=== PATIENT | male | born 1940 | race Caucasian/White ===

== ENCOUNTER 2016-08-20 10:35 | Inpatient (IN) | payer MEDICARE, OTHER ==
[2016-08-20 10:42] VITALS: BMI 26.6
--- NOTE | 2016-08-20 10:58 | ED PDOC ---
Arrival/HPI - General Chief Complaint: Chest Pain Time Seen by Provider: 08/20/16 10:40 Historian: Patient, Family, EMS - History of Present Illness Narrative History of Present Illness (Text): 08/20/16 11:00 75 year old male whose past medical history includes cardiac bypass surgery, hypertension, diabetes, hyperlipidemia, and cardiac arrythmia presents to the emergency department with palpitations and chest pain that has since resolved. Patient has a history of SVT, resolved as per EMS. Aspirin was given by EMS. Currently patient is pain free. Denies fever or other complaints. PMD: Dr. Calzada Refuge Worker: Dr. Mendoza Time/Duration: 24 hours Symptom Onset: Sudden Symptom Course: Improving Associated Symptoms (Text): None Past Medical History - Provider Review Nursing Documentation Reviewed: Yes - Infectious Disease Hx of Infectious Diseases: None - Tetanus Immunization Tetanus Immunization: Unknown - Cardiac Hx Cardiac Disorders: Yes Hx Angina: No Hx Cardiac Arrhythmia: Yes Hx Circulatory Problems: No Hx Congestive Heart Failure: No Hx Heart Murmur: No Hx Heart Transplant: No Hx Hypertension: Yes Hx Internal Defibrillator: No Hx Mitral Valve Prolapse: No Hx Pacemaker: No Hx Peripheral Edema: No Hx Peripheral Vascular Disease: No Other/Comment: CABG - Pulmonary Hx Respiratory Disorders: No Hx Asthma: No Hx Bronchitis: No Hx Chronic Obstructive Pulmonary Disease (COPD): No Hx Emphysema: No Hx Pneumonia: No Hx Respiratory Aspiration: No Hx Respiratory Tract Infection: No Hx Sleep Apnea: No Hx Tuberculosis: No - Neurological Hx Neurological Disorder: No Hx Alzheimer's Disease: No HX Cerebrovascular Accident: No Hx Dementia: No Hx Dizziness: Yes Hx Meningitis: No Hx Migraine: No Hx Parkinson's Disease: No Hx Seizures: No Hx Transient Ischemic Attacks (TIA): No - HEENT Hx HEENT Disorder: Yes (EAR INFECTION WITH SURGERY TO L EAR) Hx Blind: No Hx Cataracts: No Hx Deafness: No Hx Difficulty Chewing: Yes Hx Epistaxis: No Hx Glaucoma: No Hx Macular Degeneration: No Other/Comment: bilat cataracts - Renal Hx Renal Disorder: No Hx Dialysis: No Hx Kidney Stones: Yes Hx Neurogenic Bladder: No Hx Pyelonephritis: No Hx Renal Cancer: No Hx Renal Failure: No - Endocrine/Metabolic Hx Endocrine Disorders: No Hx Adrenal Cancer: No Hx Diabetes Insipidus: No Hx Diabetes Mellitus Type 1: No Hx Diabetes Mellitus Type 2: Yes Hx Hyperthyroidism: No Hx Hypothyroidism: No Hx Systemic Lupus Erythematosus: No - Hematological/Oncological Hx Blood Disorders: No Hx AIDS: No Hx Anemia: No Hx Cancer: No Hx Chemotherapy: No Hx Cirrhosis: No Hx Hemophilia: No Hx Hepatitis A: No Hx Hepatitis B: No Hx Hepatitis C: No Hx Metastasis: No Hx Shingles: No Hx Sickle Cell Disease: No Hx Unexplained Bleeding: No - Integumentary Hx Dermatological Disorder: No Hx Basal Cell Carcinoma: No Hx Eczema: No Hx Melanoma: No Hx Psoriasis: No Hx Squamous Cell Carcinoma: No - Musculoskeletal/Rheumatological Hx Musculoskeletal Disorders: No Hx Arthritis: No Hx Back Pain: No Hx Degenerative Joint Disease: No Hx Falls: Yes Hx Fractures: No Hx Gout: No Hx Herniated Disk: No Hx Myasthenia Gravis: No Hx Osteoarthritis: No Hx Osteomyelitis: No Hx Osteoporosis: No Hx Rhabdomyolysis: No Hx Spinal Stenosis: No Hx Unsteady Gait: Yes - Gastrointestinal Hx Gastrointestinal Disorders: No Hx Colostomy: No Hx Crohn's Disease: No Hx Diverticulitis: No Hx Gall Bladder Disease: No Hx Gastroesophageal Reflux: No Hx Gastrointestinal Ulcer: No Hx Ileostomy: No Hx Liver Failure: No Hx Pancreatitis: No HX Swallowing Problems: No - Genitourinary/Gynecological Hx Genitourinary Disorders: No Hx Hematuria: No Hx Incontinence: No Hx Sexually Transmitted Diseases: No Hx Urinary Tract Infection: No - Psychiatric Hx Psychophysiologic Disorder: No Hx Anxiety: No Hx Bipolar Disorder: No Hx Depression: No Hx Emotional Abuse: No Hx Hallucinations: No Hx Panic Disorder: No Hx Post Traumatic Stress Disorder: No Hx Psychosis: No Hx Physical Abuse: No Hx Schizophrenia: No Hx Sexual Abuse: No Hx Substance Use: No - Surgical History Hx Amputation: No Hx Appendectomy: No Hx Cardiac Catheterization: No Hx Cholecystectomy: No Hx Coronary Stent: No Hx Gastric Bypass Surgery: No Hx Hysterectomy: No Hx Joint Replacement: No Hx Kidney Transplant: No Hx Liver Transplant: No Hx Mastectomy: No Hx Musculoskeletal Surgery: No Hx Open Heart Surgery: Yes (TRIPLE BYPASS) Hx Orthopedic Surgery: No Hx Splenectomy: No Hx Valve Replacement: No Other/Comment: CATARACT, EAR SX LEFT EAR - Anesthesia Hx Anesthesia: Yes Hx Anesthesia Reactions: No - Suicidal Assessment Feels Threatened In Home Enviroment: No Family/Social History - Physician Review Nursing Documentation Reviewed: Yes Family/Social History: Unknown Family HX Smoking Status: Never Smoked Hx Alcohol Use: No Hx Substance Use: No Hx Substance Use Treatment: No Allergies/Home Meds Allergies/Adverse Reactions: Allergies No Known Allergies Allergy (Verified 08/20/16 10:43) Home Medications: Home Meds Medication Instructions Recorded Confirmed Atorvastatin Calcium [Lipitor] 10 mg PO DAILY 05/09/13 08/25/15 Aspirin [Aspirin] 1 tab PO DAILY 07/19/14 08/25/15 Levothyroxine Sodium 0.125 mcg PO DAILY 08/14/15 08/25/15 Metformin HCl 500 mg PO BID 08/14/15 08/25/15 Metoprolol Tartrate 25 mg PO BID 08/14/15 08/25/15 Review of Systems - Physician Review All systems were reviewed & negative as marked: Yes - Review of Systems Constitutional: absent: Fevers Respiratory: absent: SOB Cardiovascular: Chest Pain (resolved), Palpitations Neurological: absent: Dizziness Physical Exam Vital Signs Temp Pulse Pulse Resp BP Pulse Ox 08/20/16 11:10 102 H 08/20/16 10:35 98.0 F 106 H 16 103/61 98 Pulse: Tachycardic - Systems Exam Head: Present: Atraumatic, Normocephalic Pupils: Present: PERRL Extroacular Muscles: Present: EOMI Conjunctiva: Present: Normal Mouth: Present: Moist Mucous Membranes Neck: Present: Normal Range of Motion Respiratory/Chest: Present: Clear to Auscultation, Good Air Exchange. No: Respiratory Distress, Accessory Muscle Use Cardiovascular: Present: Regular Rate and Rhythm, Normal S1, S2. No: Murmurs Abdomen: Present: Normal Bowel Sounds. No: Tenderness, Distention, Peritoneal Signs Back: Present: Normal Inspection Upper Extremity: Present: Normal Inspection. No: Cyanosis, Edema Lower Extremity: Present: Normal Inspection. No: Edema Neurological: Present: GCS=15, CN II-XII Intact, Speech Normal Skin: Present: Warm, Dry, Normal Color. No: Rashes Psychiatric: Present: Alert, Oriented x 3, Normal Insight, Normal Concentration Medical Decision Making ED Course and Treatment: Impression: 75 year old male whose past medical history includes cardiac bypass surgery, hypertension, diabetes, hyperlipidemia, and cardiac arrythmia presents to the emergency department with palpitations and chest pain that has since resolved. Differential Diagnosis include but are not limited to: Plan: -- EKG, Chest X-ray -- Labs -- Reassess and disposition Prior Visits: Notes and results from previous visits were reviewed. Patient last seen in ED on 08/14/15 for palpitations and dizziness and admitted for Uncontrolled diabetes mellitus, Supraventricular tachycardia, Pre-syncope Progress Notes: 08/20/16 12:40 Dr. Calzada accepts to observation - Lab Interpretations Lab Results: 08/20/16 11:15 08/20/16 11:15 Lab Results 08/20/16 11:15: Sodium 136, Potassium 4.0, Chloride 100, Carbon Dioxide 25, Anion Gap 15, BUN 17, Creatinine 1.2, Est GFR ( Amer) > 60, Est GFR (Non- Af Amer) 59, Random Glucose 217 H, Calcium 9.5, Magnesium 1.4 L, Total Bilirubin 0.7, AST 24, ALT 25, Alkaline Phosphatase 88, Lactate Dehydrogenase 340, Total Creatine Kinase 57, Troponin I 0.03 D, Total Protein 7.2, Albumin 3.8, Globulin 3.4, Albumin/Globulin Ratio 1.1 08/20/16 11:15: PT 11.9 H, INR 1.10 H, APTT 31.3 H 08/20/16 11:15: WBC 9.1, RBC 5.19, Hgb 13.1 L, Hct 38.6 L, MCV 74.4 L, MCH 25.2 , MCHC 33.9, RDW 15.3 H, Plt Count 162, MPV 9.5, Gran % 61.4, Lymph % (Auto) 11.1 L, [place] % (Auto) 5.4, Eos % (Auto) 21.9 H, Baso % (Auto) 0.2, Gran # 5.62, Lymph # 1.0 L, [place] # 0.5, Eos # 2.0 H, Baso # 0.02 - RAD Interpretation Radiology Orders: 08/20/16 11:02 CHEST PORTABLE [RAD] Stat - EKG Interpretation EKG Interpretation (Text): EKG shows sinus tachycardia at [address]/T wave changes, no interval changes. Interpreted by me. Interpreted by ED Physician: Yes Type: 12 lead EKG - Scribe Statement The provider has reviewed the documentation as recorded by the [facility] Provider Scribe Attestation: All medical record entries made by the Scribe were at my direction and personally dictated by me. I have reviewed the chart and agree that the record accurately reflects my personal performance of the history, physical exam, medical decision making, and the department course for this patient. I have also personally directed, reviewed, and agree with the discharge instructions and disposition. Disposition/Present on Arrival - Present on Arrival Any Indicators Present on Arrival: No History of DVT/PE: No History of Uncontrolled Diabetes: Yes Urinary Catheter: No History of Decub. Ulcer: No History Surgical Site Infection Following: None - Disposition Have Diagnosis and Disposition been Completed?: Yes Diagnosis: Chest pain, Supraventricular tachycardia Disposition: HOSPITALIZED Disposition Time: 13:38 Patient Problems: Current Active Problems Problem Status Onset Chest pain Acute Supraventricular tachycardia Acute Condition: FAIR
[2016-08-20 11:25] LABS: ADD MANUAL DIFF? NO
[2016-08-20 11:31] LABS: BASO # 0.02 K/mm3 (0.0-2.0); BASO % 0.2 % (0.0-3.0); EOS % 21.9 % (1.5-5.0); GRAN # 5.62 (1.4-6.5); GRAN % 61.4 % (50.0-68.0); HEMATOCRIT 38.6 % (42.0-52.0); LYMPH % 11.1 % (22.0-35.0); MEAN CELL VOLUME 74.4 fL (80.0-105.0); MEAN CORPUSCULAR HEMOGLOBIN 25.2 pg (25.0-35.0); MEAN CORPUSCULAR HGB CONC 33.9 g/dl (31.0-37.0); MEAN PLATELET VOLUME 9.5 fl (7.0-11.0); MONO # 0.5 (0.1-0.6); MONO % 5.4 % (1.0-6.0); PLATELET COUNT 162 10^3/uL (120.0-450.0); RED CELL DISTRIBUTION WIDTH 15.3 % (11.5-14.5); WHITE BLOOD COUNT 9.1 10^3/ul (4.5-11.0)
[2016-08-20 11:41] LABS: ALB/GLOB RATIO 1.1 (1.1-1.8); ALKALINE PHOSPHATASE 88 U/L (38-133); ALT/SGPT 25 U/L (7-56); AST/SGOT 24 U/L (15-59); BILIRUBIN,TOTAL 0.7 mg/dL (0.2-1.3); BLOOD UREA NITROGEN 17 mg/dL (7-21); CALCIUM 9.5 mg/dL (8.4-10.5); CARBON DIOXIDE 25 mmol/L (21-33); CHLORIDE 100 mmol/L (98-107); GFR AFRICAN-AMERICAN > 60; GLUCOSE,RANDOM 217 mg/dL (70-110); MAGNESIUM 1.4 mg/dL (1.7-2.2); SODIUM 136 mmol/L (132-148); TOTAL PROTEIN 7.2 g/dL (5.8-8.3)
[2016-08-20 11:44] LABS: INR 1.1 (0.93-1.08); PARTIAL THROMBOPLASTIN TIME 31.3 Seconds (23.7-30.8)
[2016-08-20 11:52] LABS: TROPONIN I 0.03 ng/mL
--- NOTE | 2016-08-20 12:45 | RAD ---
HISTORY: cp COMPARISON: 08/14/2015 FINDINGS: LUNGS: No active pulmonary disease. PLEURA: No significant pleural effusion identified, no pneumothorax apparent. CARDIOVASCULAR: Normal. OSSEOUS STRUCTURES: Sternal wires VISUALIZED UPPER ABDOMEN: Normal. OTHER FINDINGS: None. IMPRESSION: No active disease.
--- NOTE | 2016-08-20 14:59 | CARD ---
APPROVED REPORT EKG Measurement Heart [id number] <Conclusion> Sinus tachycardia. Left [place]. Otherwise normal ECG
[2016-08-20] MEDS ORDERED: Magnesium Sulfate 2 GM in Sodium Chloride 0.9% 100 ML IVPB ONE (17:20)
[2016-08-20] MEDS ORDERED: Pneumococcal 23-Valent Vaccine IM ONE (19:54)
[2016-08-20] MEDS: Insulin Reg-LOW-Coverage SC SCH (21:59)
[2016-08-21 06:01] LABS: URINE BILIRUBIN NEGATIVE (NEGATIVE); URINE BLOOD NEGATIVE (NEGATIVE); URINE GLUCOSE (UA) NEGATIVE (NEGATIVE); URINE KETONE NEGATIVE (NEGATIVE); URINE LEUKOCYTE ESTERASE NEGATIVE Leu/uL (NEGATIVE); URINE PROTEIN NEGATIVE mg/dL (<30 mg/dL); URINE UROBILINOGEN 0.2 E.U./dL (<1 E.U./dL)
[2016-08-21 06:25] LABS: URINE APPEARANCE CLEAR (CLEAR); URINE COLOR YELLOW (YELLOW)
[2016-08-21 07:50] LABS: HEMATOCRIT 37.9 % (42.0-52.0); MEAN CELL VOLUME 74.2 fL (80.0-105.0); MEAN CORPUSCULAR HEMOGLOBIN 24.5 pg (25.0-35.0); MEAN PLATELET VOLUME 9.6 fl (7.0-11.0); RED CELL DISTRIBUTION WIDTH 15.1 % (11.5-14.5); WHITE BLOOD COUNT 9.6 10^3/ul (4.5-11.0)
[2016-08-21 08:03] LABS: BLOOD UREA NITROGEN 14 mg/dL (7-21); CALCIUM 9.3 mg/dL (8.4-10.5); CARBON DIOXIDE 28 mmol/L (21-33); CHLORIDE 101 mmol/L (98-107); CHOLESTEROL 186 mg/dL (130-200); GFR AFRICAN-AMERICAN > 60; GLUCOSE,RANDOM 102 mg/dL (70-110); POTASSIUM 3.6 mmol/L (3.6-5.0); SODIUM 137 mmol/L (132-148)
--- NOTE | 2016-08-21 08:29 | HP ---
CHIEF COMPLAINT: Chest pain, shortness of breath. HISTORY OF PRESENT ILLNESS: The patient is a 76-year-old male, my private patient, with past medical history of cardiac bypass surgery, hypertension, diabetes mellitus, hypercholesterolemia, cardiac ar rhythmias, came to the Emergency Department with palpitation, chest pain and shortness of breath. Ac tually, the patient said he was sitting and all of sudden, he felt that heart is coming out and with that, he is feeling shortness of breath. The patient has history of SVT, resolved as per EMS. Aspir in was given by EMS. When I saw the patient in the Emergency Room, at that time he does not have sharath st pain. Shortness of breath got better. No nausea, vomiting, or diarrhea. No fever, no chills. N o headache, no dizziness. PAST MEDICAL HISTORY: History of cardiac bypass, hypertension, diabetes mellitus, hypercholesterolem ia, history of CABG, dizziness, history of ear infection with surgery to the left ear. Denture prob rodrigo, history of bilateral cataracts, history of nephrolithiasis, ataxia, remote triple bypass. FAMILY HISTORY: Father and mother noncontributory. HABITS: Never smoked, no drugs, no ethanol. ALLERGIES: The patient is not allergic with any medications. HOME MEDICATIONS: Lipitor, aspirin, levothyroxine, metformin, metoprolol. REVIEW OF SYSTEMS: The patient seen and examined on the bedside in the telemetry, feels comfortable. No shortness of breath. No nausea, vomiting, or diarrhea. No hematuria or hematochezia. No swell ing of the leg. No chest pain, no palpitation, no fever, no chills. Does not look toxic. Chest davonte n is resolved. Shortness of breath resolved. Palpitations resolved. PHYSICAL EXAMINATION: VITAL SIGNS: Temperature 98, pulse 102, respiratory rate 15. Blood pressure 103/61, pulse oximetry 98. HEENT: Head normocephalic, atraumatic. Eyes: PERRLA. Extraocular muscles intact. Conjunctivae pi nk. Eyelids unremarkable. Nose patent. Mucous membranes moist. NECK: Supple. No carotid bruit, JVD or thyromegaly. CHEST: Bilaterally symmetrical. HEART: S1, S2 positive. LUNGS: Clear to auscultation. ABDOMEN: Soft. Bowel sounds positive. No organomegaly. EXTREMITIES: No edema, no cyanosis. NEUROLOGIC: The patient is awake, alert, moving all 4 extremities. No focal deficit. LABORATORY DATA: White blood cell is 9.1, hemoglobin 13.1, hematocrit 38.6, and platelets 162. [place] um 136, potassium 4.0, BUN 70, creatinine 1.2, and glucose 217. ASSESSMENT AND PLAN: The patient is a 76-year-old male with anemia, hyperglycemia, came with chest p ain, shortness of breath, palpitation, had supraventricular tachycardia, resolved. History of hypoth yroidism, hypercholesterolemia, gastric bypass, hypertension, diabetes mellitus. We admitted the pat ient. Cardiac consult called. Cardiac enzymes x 3 ordered. Repeat labs. We will follow up. Latisha Calzada MD cc: [id number] TT: 08/21/2016 08:28:43 tn
[2016-08-21 08:56] LABS: TROPONIN I 0.23 ng/mL
[2016-08-21] MEDS: Insulin Reg-LOW-Coverage SC SCH ×4 (09:00→22:59)
[2016-08-21] MEDS: Aspirin 325 mg EC Tablets PO SCH (09:06)
[2016-08-21] MEDS: Levothyroxine 125 MCG TAB PO SCH (09:09)
[2016-08-21] MEDS ORDERED: METFORMIN HCL 500 MG PO SCH (10:00)
[2016-08-21] MEDS ORDERED: LEVOTHYROXINE SODIUM 0.125 MCG PO SCH (10:00)
[2016-08-21] MEDS ORDERED: METOPROLOL TARTRATE 25 MG PO SCH (10:00)
[2016-08-21] MEDS: Enoxaparin 60 mg Syringe SC SCH ×2 (12:22→23:30)
--- NOTE | 2016-08-21 16:06 | CARD ---
APPROVED REPORT EXAM: Two-dimensional and M-mode echocardiogram with Doppler and color Doppler. 2D DIMENSIONS Left Atrium (2D)3.6 (1.6-4.0cm)IVSd1.4 (0.7-1.1cm) LVDd3.5 (3.9-5.9cm)PWd1.3 (0.7-1.1cm) LVDs2.3 (2.5-4.0cm)FS (%) 36.2 % LVEF (%)50.0 (>50%) M-Mode DIMENSIONS Left Atrium (MM)3.90 (2.5-4.0cm)Aortic Root3.10 (2.2-3.7cm) Aortic Cusp Exc.1.70 (1.5-2.0cm) Aortic Valve AoV Peak Zlieraba317.0cm/sAoV VTI22.1cmAO Peak GR.5mmHg LVOT Peak Hiuwkjul656.0cm/sLVOT VTI24.60cmAO Mean GR.3mmHg Mitral Valve MV E Ygrblxvx08.7cm/sMV A Slxpnsak806.0cm/sE/A ratio1.0 TDI Lateral E' Peak V5.85cm/sMedial E' Peak V5.22cm/sE/Lateral E'16.5 E/Medial E'18.5 Tricuspid Valve TR Peak Weiqcgbh334pr/sTR Peak Gr.15mmHg LEFT VENTRICLE The left ventricle is normal size. There is mild to moderate concentric left ventricular hypertrophy. Left ventricle ejection fraction is borderline. Septal hypokinesis Transmitral Doppler flow pattern is Grade I-abnormal relaxation pattern. RIGHT VENTRICLE The right ventricle is normal size. There is normal right ventricular wall thickness. The right ventricular systolic function is normal. ATRIA The left atrium size is normal. The right atrium size is normal. AORTIC VALVE The aortic valve is mildly thickened. MITRAL VALVE The mitral valve is mildly thickened. TRICUSPID VALVE There is no pulmonary hypertension. GREAT VESSELS The aortic root is normal in size. The IVC is normal in size and collapses >50% with inspiration. PERICARDIAL EFFUSION There is no pericardial effusion. <Conclusion> The left ventricle is normal size. There is mild to moderate concentric left ventricular hypertrophy. Left ventricle ejection fraction is borderline. Septal hypokinesis Transmitral Doppler flow pattern is Grade I-abnormal relaxation pattern.
--- NOTE | 2016-08-21 16:50 | PN ---
DATE: 08/21/2016 SUBJECTIVE: The patient was seen and examined on the bedside. Chest pain is little bit better. No nausea, vomiting, or diarrhea. No fever, no chills. No headache, no dizziness. No swelling of the leg. No fever, no chills. Does not look like toxic, REVIEW OF SYSTEMS: 12 systems within normal limits except above as dictated. PHYSICAL EXAMINATION: VITAL SIGNS: Temperature 98, pulse 60, blood pressure 147/79, respiratory rate 18. HEAD: Normocephalic, atraumatic. EYES: PERRLA. Extraocular muscles are intact. Conjunctivae clear. Nose patent. Mucous membranes moist. NECK: Supple. No carotid bruit, JVD or thyromegaly. CHEST: Bilaterally symmetrical. HEART: S1, S2 positive. LUNGS: Clear to auscultation. ABDOMEN: Soft. Bowel sounds present. No organomegaly. EXTREMITIES: No edema, no cyanosis. NEUROLOGIC: The patient is awake, alert and moving all 4 extremities. No focal deficits. MEDICATIONS: Ecotrin, insulin, Lipitor, Lopressor, Lovenox, Pepcid, Plavix, Synthroid. LABORATORY DATA: White blood cells 9.6, hemoglobin 12.5, hematocrit 37.9, platelets 176. Sodium 137, potassium 3.6, BUN 14, creatinine 1.0. Troponin is 0.23, initial was 0.03 trending up. ASSESSMENT AND PLAN: The patient is a 76-year-old male with multiple medical problems. Came with chest pain and troponin is trending up. Cardiology consult called with Dr. Rikki Mendoza. He is private patient of Dr. Rikki Mendoza. History of cardiac bypass, hypertension, diabetes mellitus, hypercholesterolemia, history of coronary artery bypass graft, dizziness, history of infection with surgery of the left ear, history of bilateral cataracts, nephrolithiasis, ataxia , history of a triple bypass. He came with chest pain. Cardiology consult called. Cardiac enzymes , ordered, second set is trending up waiting for the . History of anemia, hyperglycemia. Came with palpitation also, supraventricular tachycardia, resolved. History of hyperthyroidism, hypercholesterolemia. Gastrointestinal and deep vein thrombosis prophylaxis. Repeat lab. Waiting for a human resources administrator's input. We will follow up. Latisha Calzada MD cc: [id number] TT: 08/21/2016 16:49:17 Confirmation # [id number] Dictation # [id number] jn MTDD
--- NOTE | 2016-08-21 19:24 | CON ---
DATE: 08/21/2016 REASON FOR CONSULTATION: Chest pain. HISTORY OF PRESENT ILLNESS: The patient is a 76-year-old [place] male who has a history of hyperte nsion, diabetes mellitus, and a history of coronary artery disease status post coronary bypass surger y in 2004 in [place], [place]. The patient has a history of and the patient presents ora use of chest pain that was retrosternal, nonradiating. The patient is unaware of any coronary interv ention following his cardiac bypass surgery in 2004. The patient underwent a Myoview stress test in August of last year that was negative for ischemia. SOCIAL HISTORY: The patient is a nonsmoker, nondrinker. MEDICATIONS: Aspirin 325 mg once a day, Lipitor 40 mg once a day, Lopressor 25 mg twice a day, Loven ox 60 mg subcutaneous twice a day, Plavix 75 mg once a day, Synthroid 125 mcg once a day. PAST MEDICAL HISTORY: Hypertension, diabetes mellitus, hypothyroidism, coronary artery disease statu s post coronary bypass surgery. PHYSICAL EXAMINATION: GENERAL: The patient is an elderly male who does not appear to be in any distress. VITAL SIGNS: Blood pressure 147/79, heart rate 60, temperature 98, respiration 18. HEENT: Normocephalic. NECK: No JVD. CHEST: Clear. HEART: S1, S2 regular. ABDOMEN: Soft. EXTREMITIES: No edema. LABORATORY DATA: Hemoglobin and hematocrit 12.5 and 39.7, white count and platelet count are within normal limits. Today's SMA-7 is entirely within normal limits. Troponin was 0.03 and 0.23. TSH is elevated at 8.25. INR is 1.1 and PTT 31.3. EKG revealed sinus tachycardia at the rate of 106 with a nterior T-wave inversion. Chest x-ray revealed normal cardiac silhouette and prominent bronchovascular markings. ASSESSMENT: 1. Chest pain, rule out non-ST elevation myocardial infarction. 2. Rule out pulmonary infarction. 3. Hypertension and diabetes mellitus. 4. Hypothyroidism. RECOMMENDATIONS: Continue current therapeutic subcutaneous Lovenox, aspirin, Lopressor and Lipitor, which I did start today. Hold Glucophage for now. Obtain serum D-dimer. I will review the echocard iographic study that was performed today. Rocky Bowman MD cc: [id number] TT: 08/21/2016 19:23:31 Confirmation # [id number] Dictation # [id number] dn
[2016-08-21] MEDS ORDERED: Albuterol-Ipratrop 3 mg / 0.5 (3 ml) UD IH PRN (19:29)
--- NOTE | 2016-08-22 00:06 | CON ---
DATE: 08/21/2016 REFERRING PHYSICIAN: Dr. Calzada. REASON FOR CONSULTATION: Chronic lung disease, sleep apnea syndrome, comes in with near syncope, had hypotension at home, sent to Emergency Room, seen by cardiology and Dr. Calzada. Presently, feels be tter. There is no chest pain, no nausea, no vomiting, and no diarrhea. Has some cough. PAST MEDICAL HISTORY: Coronary artery disease, history of coronary bypass surgery, hypertension, sarah betes, nephrolithiasis, chronic lung disease, sleep apnea syndrome. FAMILY HISTORY: No significant cardiopulmonary disease reported. SOCIAL HISTORY: Nonsmoker, nondrinker. ALLERGIES: None known. MEDICATIONS: He is on Ecotrin 325 mg daily, insulin coverage, Lipitor 40 mg daily, metoprolol tartra te 25 mg twice a day, Lovenox 60 mg q. 12 hours, Pepcid 40 mg daily, Plavix 75 mg daily, Synthroid 12 5 mcg before breakfast. REVIEW OF SYSTEMS: Before admission, he had a near syncopal episode. At present, there is no headac he, no rhinitis, no cough, no sputum production, no nausea, vomiting, diarrhea. No leg pain or leg s welling. PHYSICAL EXAMINATION: GENERAL: Lying in the bed. No acute distress. VITAL SIGNS: Temp is 98, heart rate is 69, respiratory rate is , blood pressure 135/77, pulse o x 99% on 2 liters nasal cannula. HEENT: Moist mucous membranes. Crowded airway. Mallampati score is 4. NECK: Supple. No JVD. LUNGS: Has a few scattered rhonchi. HEART: Irregularly irregular. ABDOMEN: Soft, nontender. No organomegaly. EXTREMITIES: There is no edema. NEUROLOGIC: Awake, alert, follows simple commands. LABORATORY DATA: Shows hemoglobin 12.5, hematocrit 37.9, WBC 9.6, platelet is 176. INR of 1.10, D-d melina 0.52. Sodium 137, potassium 3.6, chloride 101, bicarbonate 28, BUN 14, creatinine 1.0, glucose 178, calcium is 9.3, magnesium 2.0. Troponin 0.23. TSH 8.25. Urinalysis is unremarkable. Had echo cardiogram done today, shows left ventricle is normal size, mild to moderate concentric left ventricu lar hypertrophy, left ventricular ejection fraction is borderline, , has mild cardiac diastolic dysfunction. Had EKG done, which shows sinus tachycardia, left axis deviation. IMPRESSION AND PLAN: Near syncopal episode with shortness of breath, has coronary artery disease, hi story of coronary bypass surgery, hypertension, diabetes, hyperlipidemia, chronic lung disease, sleep apnea syndrome, has OH. The patient is on anticoagulation. We will add bronchodilators, GERD preca utions, CPAP 7 cm with 35% oxygen while sleeping. Careful with sedation. [facility] consultation. Thank you and will follow with you. Nevin Arellano MD cc: [id number] TT: 08/22/2016 00:05:42 Confirmation # [id number] Dictation # [id number] mn
[2016-08-22] MEDS: Insulin Reg-LOW-Coverage SC SCH ×4 (07:37→21:38)
[2016-08-22] MEDS: Enoxaparin 60 mg Syringe SC SCH ×2 (07:43→21:11)
[2016-08-22] MEDS: Levothyroxine 125 MCG TAB PO SCH (07:44)
[2016-08-22 07:47] LABS: HEMATOCRIT 39.1 % (42.0-52.0); MEAN CELL VOLUME 74.5 fL (80.0-105.0); MEAN CORPUSCULAR HEMOGLOBIN 24.4 pg (25.0-35.0); MEAN CORPUSCULAR HGB CONC 32.7 g/dl (31.0-37.0); MEAN PLATELET VOLUME 9.3 fl (7.0-11.0); RED CELL DISTRIBUTION WIDTH 14.9 % (11.5-14.5); WHITE BLOOD COUNT 8.5 10^3/ul (4.5-11.0)
[2016-08-22 08:04] LABS: ALKALINE PHOSPHATASE 71 U/L (38-133); ALT/SGPT 28 U/L (7-56); AST/SGOT 23 U/L (15-59); BILIRUBIN,TOTAL 0.6 mg/dL (0.2-1.3); BLOOD UREA NITROGEN 15 mg/dL (7-21); CALCIUM 9.5 mg/dL (8.4-10.5); CARBON DIOXIDE 30 mmol/L (21-33); CHLORIDE 98 mmol/L (98-107); GFR AFRICAN-AMERICAN > 60; GLUCOSE,RANDOM 111 mg/dL (70-110); POTASSIUM 3.8 mmol/L (3.6-5.0); SODIUM 138 mmol/L (132-148); TOTAL PROTEIN 7.4 g/dL (5.8-8.3)
[2016-08-22] MEDS: Aspirin 325 mg EC Tablets PO SCH (09:17)
--- NOTE | 2016-08-22 14:20 | PN ---
DATE: 08/22/2016 The patient denies any chest pain. PHYSICAL EXAMINATION: VITAL SIGNS: Blood pressure 158/78, heart rate 68, temperature 97.4, respiration 18. HEENT: Normocephalic. NECK: No JVD. CHEST: Clear. HEART: S1, S2 regular. EXTREMITIES: No edema. LABORATORIES: Today's SMA-7 is within normal limits except for glucose of 111. Today's troponin 0.1 . Echocardiograph study revealed normal left ventricular size, mild to moderate concentric LVH, sept al hypokinesis, borderline ejection fraction and grade I abnormal relaxation pattern. ASSESSMENT: 1. Chest pain, consider non-ST elevation myocardial infarction. 2. Hypertension and diabetes mellitus. RECOMMENDATIONS: Continue current aspirin, Plavix, therapeutic subcutaneous Lovenox, Lopressor and S ynthroid. For possible cardiac catheterization tomorrow. Rocky Bowman MD cc: [id number] TT: 08/22/2016 14:19:45 Confirmation # [id number] Dictation # [id number]
--- NOTE | 2016-08-22 15:38 | PN ---
DATE: 08/22/2016 The patient is a 76-year-old male. The patient was seen and examined on the bedside, looks comfortable. No nausea, vomiting, diarrhea. No hematuria, no hematochezia. No swelling of the legs. No chest pain, no palpitation. No headache, no dizziness, no fever, no chills. Does not look like toxic. PHYSICAL EXAMINATION: VITAL SIGNS: Blood pressure 158/78, heart rate 80 , temperature 97.4, respiration rate 18. HEENT: Head normocephalic, atraumatic. Eyes, PERRLA. Extraocular muscles intact. Conjunctivae clear. Eyelids unremarkable. Nose patent. Mucous membranes moist. NECK: Supple. No carotid bruit, no JVD, no thyromegaly. CHEST: Bilaterally symmetrical. HEART: S1, S2 positive. LUNGS: Clear to auscultation. ABDOMEN: Soft. Bowel sounds positive. No organomegaly. EXTREMITIES: No edema, no cyanosis. NEUROLOGIC: The patient is awake, alert, moving all 4 extremities. No focal deficits. MEDICATIONS: Reviewed by me. LABORATORIES: White blood cells is 8.5, hemoglobin 12.8, hematocrit 39.1, platelets 171. creatinine 1.1, glucose 111. ASSESSMENT AND PLAN: The patient is a 76-year-old male with anemia, hyperglycemia, came with chest pain. Seen by the fitter/welder, Dr. Rocky Bowman, covering Dr. Rikki Mendoza. The patient has non-ST elevation myocardial infarction as per cardiology, hypertension, diabetes mellitus. Continue present treatment, Plavix, therapeutic subcutaneous Lovenox, Lopressor , Synthroid. For possibly cardiac catheterization tomorrow. Explained to the patient, he understands. Tried to explain the things to the patient in layman' s terms in his own language. Seen by Dr. Arellano for shortness of breath also. Almost near syncope episode with weakness, with shortness of breath, history of coronary artery bypass surgery, hypertension, diabetes mellitus, hypercholesterolemia, chronic lung disease, sleep apnea syndrome. The patient is on anticoagulation. Continue bronchodilators. Gastroesophageal reflux disease precautions, labs. Gastrointestinal and deep venous thrombosis prophylaxis. Repeat labs. Will follow up. Latisha Calzada MD cc: [id number] TT: 08/22/2016 15:37:24 Confirmation # [id number] Dictation # [id number] en MTDD
--- NOTE | 2016-08-22 19:20 | PN ---
DATE: 08/22/2016 REFERRING PHYSICIAN: Dr. Calzada. SUBJECTIVE: He is lying in the bed, head at 45 degrees. No nausea, no vomiting, no diarrhea, no leg pain or swelling. OBJECTIVE: GENERAL: No acute distress. VITAL SIGNS: Temperature is 98, heart rate is 64, respiratory rate is 18, blood pressure 127/69. HEENT: Moist mucous membrane. Crowded airway. NECK: Supple, no JVD. LUNGS: Has a fair airflow with few rhonchi. HEART: S1, S2. ABDOMEN: Soft, nontender. No organomegaly. EXTREMITIES: There is no edema. NEUROLOGIC: Awake, alert, follows simple commands. MEDICATIONS: He is on DuoNeb q. 6 hours p.r.n., Ecotrin 325 mg daily, insulin coverage, Lipitor 40 mg daily, metoprolol tartrate 25 mg twice a day, Lovenox 60 mg subQ twice a day, Pepcid 20 mg daily, Plavix 75 mg daily, Synthroid 125 mcg a,c.b. LABORATORY DATA: Shows hemoglobin 12.8, hematocrit 39.1, WBC 8.5, platelet count is 171. Sodium 138 , potassium 3.8, chloride 98, bicarbonate 30, BUN 15, creatinine 1.1, glucose 111. AST is 23, ALT 28 , alkaline phosphatase is 71. LDH is 348, albumin is 3.7. IMPRESSION AND PLAN: Status post myocardial infarction, near syncope, coronary artery disease, histo ry of coronary bypass surgery, hypertension, diabetes, hyperlipidemia, chronic lung disease, may have sleep apnea syndrome. Pulmonary point of view doing okay, keep head elevated at 45 degree, bronchod ilators, anticoagulation. Gastric prophylaxis. Sequential compression device to lower extremity. C ardiac workup. Thank you and will follow with you. Nevin Arellano MD cc: [id number] TT: 08/22/2016 19:19:35 Confirmation # [id number] Dictation # [id number] jn
[2016-08-23] MEDS: Insulin Reg-LOW-Coverage SC SCH ×4 (08:39→21:34)
[2016-08-23] MEDS: Aspirin 325 mg EC Tablets PO SCH (09:00)
[2016-08-23] MEDS: Enoxaparin 60 mg Syringe SC SCH ×2 (09:02→21:38)
[2016-08-23] MEDS ORDERED: Lidocaine 2% Inj (20ml) ONE (10:46)
[2016-08-23] MEDS ORDERED: Iodixanol 320 MG/ML 200 ML BOTTLE IV ONE (10:47)
[2016-08-23] MEDS ORDERED: Midazolam 2 MG/2 ML VIAL ONE ×2 (10:47→11:18)
--- NOTE | 2016-08-23 13:20 | CARDCATH ---
PROCEDURE DATE: 08/23/2016 HISTORY OF PRESENT ILLNESS: The patient is a 76-year-old male with multiple cardiac risk factors who presents with a non-STEMI. The patient is status post coronary artery bypass surgery several years ago. Because of his non-STEMI and history of coronary artery disease, cardiac catheterization was recommen ded. PROCEDURE: Left heart catheterization with coronary angiography and left ventriculogram with MALIK an giogram and saphenous vein graft angiogram. The right femoral artery was cannulated with a 6-Greenlandic sheath. There were no complications. The findings on catheterization revealed normal LV function with an EF of greater than 60%. His coronary anatomy revealed a left main artery that revealed calcification and was diffusely diseas ed without critical lesions. The LAD was occluded in its ostium. The circumflex artery was a dominant vessel. The circumflex in the AV groove branch and into the PDA revealed diffuse atherosclerosis without critical lesions. There is a first obtuse marginal branch that revealed a 90% stenosis at its ostium as well as a 90% s tenosis in the mid portion. The RCA was a nondominant vessel and was diffusely diseased with a long 90% stenosis throughout. The MALIK to the mid and distal LAD was patent and provided good antegrade flow to the diffusely disea sed mid and distal LAD. There is a saphenous vein graft to the diagonal vessel that was patent and provided good antegrade fl ow. There is a jump saphenous vein graft to the diagonal vessel and obtuse marginal branch, which was pat ent and provided good antegrade flow. Angio-Seal was used to close the femoral artery site. The patient tolerated the procedure well. SUMMARY: The procedure revealed: 1. Triple vessel coronary artery disease. 2. Patent left internal mammary artery to the left anterior descending. 3. Patent saphenous vein graft to the diagonal vessel. 4. Patent jump saphenous vein graft to the diagonal 2 as well as to the obtuse marginal branch. 5. Left ventricular function is normal. Given these findings, the patient's treatment will be continued medical therapy. The patient's diffu se disease in his coronary arteries are supplied all by patent bypass grafts. Continue medical thera py, which should include a cardiac risk reduction program. Rikki Mendoza MD cc: [id number] TT: 08/23/2016 13:20:09 en
[2016-08-23] MEDS: Levothyroxine 125 MCG TAB PO SCH (17:32)
--- NOTE | 2016-08-23 20:20 | PN ---
DATE: 08/23/2016 REFERRING PHYSICIAN: Dr. Calzada. SUBJECTIVE: He is lying in the bed, head at 45 degrees. Night was unremarkable. No headache, no rh initis. Chest pain is better. No nausea, no vomiting, diarrhea. No leg pain or leg swelling. OBJECTIVE: GENERAL: No acute distress. VITAL SIGNS: Temp is 98, heart rate 74, respiratory rate is 20, blood pressure 124/67. HEENT: Moist mucous membranes. Crowded airway. Mallampati score is 4. NECK: Supple. No JVD. LUNGS: Fair airflow with few rhonchi. HEART: S1, S2. ABDOMEN: Soft, nontender. No organomegaly. EXTREMITIES: There is no edema. NEUROLOGIC: Awake, alert, follows simple command. MEDICATIONS: He is on DuoNeb q. 6 hours p.r.n., Ecotrin 325 mg daily, insulin coverage, Lipitor 40 m g daily, metoprolol tartrate 25 mg twice a day, Lovenox 60 mg subQ q. 12 hours, Pepcid 20 mg daily, P lavix 75 mg daily, Synthroid 125 ____. LABORATORY DATA: Reviewed. No new lab is available. Had a cardiac catheterization done after I had seen the patient. Shows triple vessel coronary artery disease, patent left internal mammary artery to the left anterior descending, patent saphenous vein graft to the diagonal vessel, patent saphenous vein graft to the diagonal 2 as well as to the obtuse marginal ____, left ventricular function is normal. Medical therapy is recommended. IMPRESSION AND PLAN: Status post myocardial infarction, near syncope, coronary artery disease, histo ry of coronary bypass surgery, hypertension, diabetes, hyperlipidemia, chronic lung disease. Reviewi cardiac cath report. We will start physical therapy, out of bed to chair. Gastric prophylaxis. DVT prophylaxis. May discharge home ____ for discharge planning. Thank you and will follow with you . Nevin Arellano MD cc: [id number] TT: 08/23/2016 20:20:05 Confirmation # [id number] Dictation # [id number] jennifer
[2016-08-23] MEDS ORDERED: Levothyroxine 125 MCG TAB PO SCH (21:32)
--- NOTE | 2016-08-23 22:04 | PN ---
DATE: 08/23/2016 SUBJECTIVE: The patient was seen and examined on the bedside, status post catheterization, no change in the status. No overnight incident. No headache, no rhinitis. No nausea, vomiting, or diarrhea . No fever, no chills. PHYSICAL EXAMINATION: VITAL SIGNS: Temperature 98, heart rate 74, respiratory rate 20, blood pressure 124/57. HEAD: Normocephalic, atraumatic. EYES: PERRLA. Extraocular muscles intact. Conjunctivae clear. Nose patent. Mucous membranes moist. NECK: Supple. No carotid bruit, no JVD or thyromegaly. CHEST: Bilaterally symmetrical. HEART: S1, S2 positive. LUNGS: Fair airflow with few rhonchi. ABDOMEN: Soft, nontender. No organomegaly. EXTREMITIES: No edema, no cyanosis. NEUROLOGIC: Awake, alert, follows simple commands. MEDICATIONS: DuoNeb, Ecotrin, insulin, Lipitor, metoprolol, Lovenox, Pepcid, Plavix, Synthroid. LABORATORY DATA: We do not have new labs today, but I reviewed old labs. ASSESSMENT AND PLAN: The patient is a 76-year-old male status post myocardial infarction and near syncope, coronary artery disease, history of coronary bypass , hypertension, diabetes mellitus uncontrolled, hypercholesterolemia, chronic obstructive lung disease. The patient went for cardiac catheterization today, cardiac catheterization showed triple vessel coronary artery disease, patent left internal mammary artery to the left anterior descending, patent saphenous vein graft to the diagonal as well as obtuse marginal, left ventricular function is within normal limits. Medical therapy is recommended. Appreciated Dr. Rikki Mendoza's input. Continue DuoNeb, Ecotrin, insulin coverage, Lipitor for hypercholesterolemia, metoprolol hypertension, Lovenox subcutaneous for DVT prophylaxis, Pepcid for GI prophylaxis. Plavix. The patient will continue Synthroid for hypothyroidism. Repeat labs. Physical therapy. We will follow up. Latisha Calzada MD cc: [id number] TT: 08/23/2016 22:03:32 Confirmation # [id number] Dictation # [id number] jn [facility] HOSPITALMelo
[2016-08-24 06:28] VITALS: O2SAT 97
[2016-08-24] MEDS: Insulin Reg-LOW-Coverage SC SCH ×2 (08:28→12:25)
[2016-08-24] MEDS: Enoxaparin 60 mg Syringe SC SCH (09:32)
[2016-08-24] MEDS: Aspirin 325 mg EC Tablets PO SCH (09:32)
--- NOTE | 2016-08-24 10:47 | PN ---
DATE: 08/24/2016 The patient is without symptoms. No shortness of breath. He is ambulating in his room. PHYSICAL EXAMINATION: VITAL SIGNS: Blood pressure 140/80, the heart rate is in the 80s. NECK: Negative JVD. LUNGS: Without rales. HEART: Reveals S1, S2. EXTREMITIES: Without edema. LABORATORIES: No hemoglobin was drawn today. Glucose is 129. IMPRESSION: 1. Stable angina. 2. Non-ST elevation myocardial infarction. 3. Occluded small right coronary artery. 4. Status post coronary artery bypass surgery with patent grafts. 5. Diabetes mellitus. 6. Hypercholesterolemia. Given these findings, the patient is stable for discharge from a cardiac perspective. We will discontinue telemetry. We will discontinue his Lovenox. Followup and instructions have been given to the patient in detail. Rikki Mendoza MD cc: [id number] TT: 08/24/2016 10:47:15 Confirmation # [id number] Dictation # [id number] en
[2016-08-24 12:18] VITALS: BP 101/65; PULSE 65; RESP 20
[2016-08-24 12:26] VITALS: TEMP 97.4
--- NOTE | 2016-08-31 16:32 | DS ---
CHIEF COMPLAINT: Chest pain, shortness of breath. HISTORY OF PRESENT ILLNESS: The patient is a 76-year-old male with past medical history of cardiac bypass surgery, hypertension, diabetes mellitus, hypercholesterolemia, cardiac arrhythmias, came to the Emergency Room with palpitations, chest pain, shortness of breath. We admitted the patient. Called cardiology consult with Dr. Rikki Mendoza and pulmonary with Dr. Arellano. The patient went for cardiac catheterization and stent was put by Dr. Rikki Mendoza. He felt better and discharged on 08/24/2016. Will follow up primary care physician and telephone order clerk. PAST MEDICAL HISTORY: History of cardiac bypass, hypertension, diabetes mellitus, hypercholesterolemia, CABG, dizziness, history of ear infection with surgery to the left ear, denture problem, bilateral cataracts, nephrolithiasis , ataxia and remote triple bypass. FAMILY HISTORY: Father and mother noncontributory. HABITS: Never smoked, no drugs, no ethanol. ALLERGIES: The patient is not allergic to any medications. HOME MEDICATIONS: Reviewed by me. REVIEW OF SYSTEMS: The patient seen and examined on the bedside. Looks comfortable. No nausea, vomiting, or diarrhea. No hematuria or hematochezia. No swelling of the legs. No chest pain, no palpitation, no headache, no dizziness. PHYSICAL EXAMINATION: VITAL SIGNS: Temperature 97, pulse 65 blood pressure 101/65, respiratory rate 20. HEAD: Normocephalic and atraumatic. EYES: PERRLA. Extraocular muscles intact. Conjunctivae are clear. Nose patent. Mucous membranes moist. NECK: Supple. No carotid bruit, JVD or thyromegaly. CHEST: Bilaterally symmetrical. HEART: S1, S2 positive. LUNGS: Clear to auscultation. ABDOMEN: Soft. Bowel sounds positive. No organomegaly. EXTREMITIES: No edema, no cyanosis. NEUROLOGIC: The patient is awake, alert, moving all 4 extremities. No focal deficit. LABORATORY DATA: White blood cells 8.5, hemoglobin 12.8, hematocrit 39.1, platelets 171. Glucose 279, 129, 202 and 203. ASSESSMENT AND PLAN: The patient is a 76-year-old male with stable angina, non- ST-segment elevation myocardial infarction, attributed to a small some right coronary artery, status post coronary artery bypass surgery with patent grafts, diabetes mellitus, hypercholesterolemia. The patient was cleared for discharge by the telephone order clerk. The patient is on Lovenox in the hospital, we discontinued the Lovenox, history of near syncope, hypercholesterolemia, chronic obstructive lung disease. DuoNeb given in the hospital, Lipitor given, metoprolol provided. Discharged home. Follow up with primary care physician and telephone order clerk. Latisha Calzada MD cc: [id number] TT: 08/31/2016 16:31:08 mn [facility]
== END 2016-08-24 16:13 | disposition home or self-care (01) | DRG 281 ==
LOC: ED 10:35 → OBSVTOIN 12:32 → ERH 12:32 → 2RNO 17:29 → INTOOBSV 08-21 16:10 → OBSVTOIN 08-21 16:10
PROVIDERS: ADMIT Internal Medicine; ATTEND Internal Medicine
PROC: 4A023N7 Measurement of Cardiac Sampling and Pressure, Left Heart, Percutaneous Approach (ICD-10-PCS; principal; 2016-08-23)
PROC: B2031ZZ Plain Radiography of Multiple Coronary Artery Bypass Grafts using Low Osmolar Contrast (ICD-10-PCS; 2016-08-23)
PROC: B2011ZZ Plain Radiography of Multiple Coronary Arteries using Low Osmolar Contrast (ICD-10-PCS; 2016-08-23)
PROC: B2081ZZ Plain Radiography of Left Internal Mammary Bypass Graft using Low Osmolar Contrast (ICD-10-PCS; 2016-08-23)
DX: I21.4 Non-ST elevation (NSTEMI) myocardial infarction (principal); I47.1 Supraventricular tachycardia; E11.65 Type 2 diabetes mellitus with hyperglycemia; J44.9 Chronic obstructive pulmonary disease, unspecified; I25.118 Atherosclerotic heart disease of native coronary artery with other forms of angina pectoris; I10 Essential (primary) hypertension; E78.00 Pure hypercholesterolemia, unspecified; D64.9 Anemia, unspecified; E03.9 Hypothyroidism, unspecified; G47.30 Sleep apnea, unspecified; E78.5 Hyperlipidemia, unspecified; Z79.84 Long term (current) use of oral hypoglycemic drugs; Z87.442 Personal history of urinary calculi; Z95.1 Presence of aortocoronary bypass graft; Z98.84 Bariatric surgery status

== ENCOUNTER 2018-07-29 22:32 | Inpatient (IN) | payer MEDICARE, MEDICAID ==
[2018-07-29 22:34] VITALS: BMI 21.1
--- NOTE | 2018-07-29 23:17 | ED PDOC ---
Arrival/HPI - General Chief Complaint: Altered Mental Status Time Seen by Provider: 07/29/18 22:53 Historian: Patient - History of Present Illness Narrative History of Present Illness (Text): 07/29/18 23:16 A 78 year old male, whose past medical history includes diabetes and CABG (2005), presents to the ED for further evaluation of hypoglycemia. As per the patient's son, patient was apparently feeling weak today, not eating well, and experiencing diarrhea. It was noted that he had low blood sugar tonight. Patient with increased weakness tonight prompted family to call the ambulance. EMS noted low blood sugar and gave D50 in route to the ED; Patient felt better following this. Patient never lost consciousness. The patient denies fevers, chills, headache, dizziness, chest pain, shortness of breath, dyspnea on exertion, cough, abdominal pain, nausea, vomiting, back pain, neck pain, urinary/bowel changes, or any other complaint. PMD: Dr. Calzada Time/Duration: Other (Today) Symptom Onset: Sudden Symptom Course: Improving Activities at Onset: Rest, Light Context: Home Past Medical History - Provider Review Nursing Documentation Reviewed: Yes - Infectious Disease Hx of Infectious Diseases: None - Tetanus Immunization Tetanus Immunization: Unknown - Cardiac Hx Cardiac Disorders: Yes Hx Angina: No Hx Cardiac Arrhythmia: Yes Hx Circulatory Problems: No Hx Congestive Heart Failure: No Hx Heart Murmur: No Hx Heart Transplant: No Hx Hypertension: Yes Hx Internal Defibrillator: No Hx Mitral Valve Prolapse: No Hx Pacemaker: No Hx Peripheral Edema: No Hx Peripheral Vascular Disease: No Other/Comment: CABG - Pulmonary Hx Respiratory Disorders: No Hx Asthma: No Hx Bronchitis: No Hx Chronic Obstructive Pulmonary Disease (COPD): No Hx Emphysema: No Hx Pneumonia: No Hx Respiratory Aspiration: No Hx Respiratory Tract Infection: No Hx Sleep Apnea: No Hx Tuberculosis: No - Neurological Hx Neurological Disorder: Yes Hx Alzheimer's Disease: No HX Cerebrovascular Accident: No Hx Dementia: No Hx Dizziness: Yes Hx Meningitis: No Hx Migraine: No Hx Parkinson's Disease: No Hx Seizures: No Hx Transient Ischemic Attacks (TIA): No - HEENT Hx HEENT Disorder: Yes (EAR INFECTION WITH SURGERY TO L EAR) Hx Blind: No Hx Cataracts: Yes (WITH SX) Hx Deafness: No Hx Difficulty Chewing: Yes Hx Epistaxis: No Hx Glaucoma: No Hx Macular Degeneration: No Other/Comment: bilat cataracts - Renal Hx Renal Disorder: Yes Hx Kidney Stones: Yes Hx Neurogenic Bladder: No Hx Pyelonephritis: No Hx Renal Cancer: No Hx Renal Failure: No - Endocrine/Metabolic Hx Endocrine Disorders: Yes Hx Adrenal Cancer: No Hx Diabetes Insipidus: No Hx Diabetes Mellitus Type 1: No Hx Diabetes Mellitus Type 2: Yes Hx Hyperthyroidism: No Hx Hypothyroidism: Yes Hx Systemic Lupus Erythematosus: No - Hematological/Oncological Hx Blood Disorders: No Hx AIDS: No Hx Anemia: No Hx Cancer: No Hx Chemotherapy: No Hx Cirrhosis: No Hx Hemophilia: No Hx Hepatitis A: No Hx Hepatitis B: No Hx Hepatitis C: No Hx Metastasis: No Hx Shingles: No Hx Sickle Cell Disease: No Hx Unexplained Bleeding: No - Integumentary Hx Dermatological Disorder: No Hx Basal Cell Carcinoma: No Hx Eczema: No Hx Melanoma: No Hx Psoriasis: No Hx Squamous Cell Carcinoma: No - Musculoskeletal/Rheumatological Hx Musculoskeletal Disorders: Yes Hx Arthritis: No Hx Back Pain: No Hx Degenerative Joint Disease: No Hx Falls: Yes Hx Fractures: No Hx Gout: No Hx Herniated Disk: No Hx Myasthenia Gravis: No Hx Osteoarthritis: No Hx Osteomyelitis: No Hx Osteoporosis: No Hx Rhabdomyolysis: No Hx Spinal Stenosis: No Hx Unsteady Gait: Yes - Gastrointestinal Hx Gastrointestinal Disorders: Yes Hx Colostomy: No Hx Crohn's Disease: No Hx Diverticulitis: No Hx Gall Bladder Disease: No Hx Gastroesophageal Reflux: No Hx Ileostomy: No Hx Liver Failure: No Hx Pancreatitis: No HX Swallowing Problems: No - Genitourinary/Gynecological Hx Genitourinary Disorders: Yes Hx Hematuria: No Hx Incontinence: No Hx Prostate Problems: Yes (BPH) Hx Sexually Transmitted Diseases: No Hx Urinary Tract Infection: No Other/Comment: EPIDIDYMITIS,ORCHITIS - Psychiatric Hx Psychophysiologic Disorder: No Hx Anxiety: No Hx Bipolar Disorder: No Hx Depression: No Hx Emotional Abuse: No Hx Hallucinations: No Hx Panic Disorder: No Hx Post Traumatic Stress Disorder: No Hx Psychosis: No Hx Physical Abuse: No Hx Schizophrenia: No Hx Sexual Abuse: No Hx Substance Use: No - Surgical History Hx Amputation: No Hx Appendectomy: No Hx Cardiac Catheterization: No Hx Cholecystectomy: No Hx Coronary Artery Bypass Graft: Yes (TRIPLE) Hx Coronary Stent: No Hx Gastric Bypass Surgery: No Hx Hysterectomy: No Hx Joint Replacement: No Hx Kidney Transplant: No Hx Liver Transplant: No Hx Mastectomy: No Hx Musculoskeletal Surgery: No Hx Open Heart Surgery: Yes (TRIPLE BYPASS) Hx Orthopedic Surgery: No Hx Splenectomy: No Hx Valve Replacement: No Other/Comment: BLITERAL CATARACT REMOVAL, EAR SX LEFT EAR - Anesthesia Hx Anesthesia: Yes Hx Anesthesia Reactions: No Hx Malignant Hyperthermia: No - Suicidal Assessment Feels Threatened In Home Enviroment: No Family/Social History - Physician Review Nursing Documentation Reviewed: Yes Family/Social History: No Known Family HX Smoking Status: Never Smoked Hx Alcohol Use: No Hx Substance Use: No Hx Substance Use Treatment: No Allergies/Home Meds Allergies/Adverse Reactions: Allergies No Known Allergies Allergy (Verified 08/20/16 14:44) Home Medications: Home Meds Medication Instructions Recorded Confirmed Aspirin 81 mg PO DAILY 07/19/14 07/29/18 Glipizide [Glipizide ER] 10 mg PO DAILY 05/06/17 07/29/18 Levothyroxine [Synthroid] 100 mcg PO DAILY 05/06/17 07/29/18 MetFORMIN [glucOPHAGE] 1,000 mg PO BID 05/06/17 07/29/18 Omeprazole 40 mg PO DAILY 05/06/17 07/29/18 Ascorbic Acid [Vitamin C 500 mg 1 tab PO DAILY 07/29/18 07/29/18 Tab] Cetirizine HCl [Wal-Zyr] 1 tab PO DAILY 07/29/18 07/29/18 Cyanocobalamin [Vitamin B12 1000 1 tab PO DAILY 07/29/18 07/29/18 mcg Tab] Enalapril Maleate [Vasotec] 1 tab PO DAILY 07/29/18 07/29/18 Review of Systems - Physician Review All systems were reviewed & negative as marked: Yes - Review of Systems Constitutional: absent: Fevers Respiratory: absent: SOB, Cough Cardiovascular: absent: Chest Pain, [place] Gastrointestinal: Diarrhea. absent: Abdominal Pain, Stool Changes, Nausea, Vo miting Musculoskeletal: absent: Back Pain, Neck Pain Neurological: absent: Headache, Dizziness Endocrine: Other (hypoglycemia.) Physical Exam Vital Signs Reviewed: Yes Vital Signs Temp Pulse Resp BP Pulse Ox 07/29/18 22:44 97.7 F 80 18 151/78 H 99 Temperature: Afebrile Blood Pressure: Hypertensive Pulse: Regular Respiratory Rate: Normal Appearance: Positive for: Well-Appearing, Non-Toxic, Comfortable Pain Distress: None Mental Status: Positive for: Alert and Oriented X 3 Finger Stick Blood Glucose: 174 - Systems Exam Head: Present: Atraumatic, Normocephalic Pupils: Present: PERRL Extroacular Muscles: Present: EOMI Conjunctiva: Present: Normal Mouth: Present: Moist Mucous Membranes Neck: Present: Normal Range of Motion Respiratory/Chest: Present: Clear to Auscultation, Good Air Exchange. No: Respiratory Distress, Accessory Muscle Use Cardiovascular: Present: Regular Rate and Rhythm, Normal S1, S2. No: Murmurs Abdomen: No: Tenderness, Distention, Peritoneal Signs Back: Present: Normal Inspection Upper Extremity: Present: Normal Inspection. No: Cyanosis, Edema Lower Extremity: Present: Normal Inspection. No: Edema Neurological: Present: GCS=15, CN II-XII Intact, Speech Normal Skin: Present: Warm, Dry, Normal Color. No: Rashes Psychiatric: Present: Alert, Oriented x 3, Normal Insight, Normal Concentration Medical Decision Making ED Course and Treatment: 07/29/18 23:28 Impression: A 78 year old male brought into the ED by EMS for further evaluation of increasing weakness, decreased appetite, diarrhea, and hypoglycemia. Plan: -- EKG -- Chest X-ray -- Labs -- Reassess and disposition Prior Visits: Notes and results from previous visits were reviewed. Progress Notes: EKG: Ordered, reviewed, and independently interpreted the EKG. Rate : 72 BPM Rhythm : NSR Interpretation : Occasional PAC. Non specific ST-T changes. 07/30/18 00:34: Chest X-ray read and interpreted by me shows no acute process. 07/30/18 00:41: Case discussed in detail with Dr. Calzada who accepts patient to her service. - Lab Interpretations I have reviewed the lab results: Yes - EKG Interpretation Interpreted by ED Physician: Yes Type: 12 lead EKG - Scribe Statement The provider has reviewed the documentation as recorded by the Oliveribe Dunia Gardner Provider Scribe Attestation: All medical record entries made by the Scribe were at my direction and personally dictated by me. I have reviewed the chart and agree that the record accurately reflects my personal performance of the history, physical exam, medical decision making, and the department course for this patient. I have also personally directed, reviewed, and agree with the discharge instructions and disposition. Disposition/Present on Arrival - Present on Arrival Any Indicators Present on Arrival: No History of DVT/PE: No History of Uncontrolled Diabetes: Yes Urinary Catheter: No History of Decub. Ulcer: No History Surgical Site Infection Following: None - Disposition Have Diagnosis and Disposition been Completed?: Yes Diagnosis: NSTEMI (non-ST elevated myocardial infarction), Hypoglycemia, Uncontrolled diabetes mellitus Disposition: HOSPITALIZED Disposition Time: 00:56 Patient Plan: Admission Patient Problems: Current Active Problems Problem Status Onset Hypoglycemia Acute NSTEMI (non-ST elevated myocardial infarction) Acute Uncontrolled diabetes mellitus Acute Condition: STABLE
[2018-07-29 23:46] LABS: HEMOGLOBIN 13.6 g/dL (14.0-18.0); MEAN CELL VOLUME 79.7 fl (80.0-105.0); MEAN CORPUSCULAR HEMOGLOBIN 26.1 pg (25.0-35.0); MEAN CORPUSCULAR HGB CONC 32.8 g/dl (31.0-37.0); MEAN PLATELET VOLUME 9.2 fl (7.0-11.0); RBC 5.21 10^6/uL (3.5-6.1); RED CELL DISTRIBUTION WIDTH 15.8 % (11.5-14.5)
[2018-07-29 23:53] LABS: INR 1.12; PARTIAL THROMBOPLASTIN TIME 35.6 Seconds (26.9-38.3); PROTHROMBIN TIME 12.4 SECONDS (9.4-12.5)
[2018-07-29 23:58] LABS: BLOOD UREA NITROGEN 24 mg/dL (7-21); GFR NON-AFRICAN AMERICAN > 60
[2018-07-30 00:03] LABS: ALB/GLOB RATIO 1.2 (1.1-1.8); ALBUMIN 4.5 g/dL (3.0-4.8); ALT/SGPT 9 U/L (7-56); AST/SGOT 48 U/L (17-59)
[2018-07-30 00:21] LABS: TROPONIN I 0.53 ng/mL
[2018-07-30] MEDS ORDERED: Dextrose 50% SYRINGE Inj (50 ml) IVP ONE (00:24)
[2018-07-30] MEDS ORDERED: Enoxaparin 60 mg Syringe SC STA (00:27)
[2018-07-30] MEDS: Pantoprazole 40 mg EC Tab PO SCH (06:04)
[2018-07-30] MEDS: Levothyroxine 100 MCG TAB PO SCH (06:04)
[2018-07-30 08:14] LABS: HDL CHOLESTEROL 41 mg/dL (29-60)
[2018-07-30 08:15] LABS: IRON 90 ug/dL (45-180)
[2018-07-30 08:25] LABS: LDL CHOLESTEROL 78 mg/dL (0-129)
[2018-07-30 08:33] LABS: % IRON SATURATION 28 % (20-55); TOTAL IRON BINDING CAPACITY 321 ug/dL (261-462)
--- NOTE | 2018-07-30 08:35 | RAD ---
HISTORY: weak COMPARISON: Chest x-ray performed 08/20/16 TECHNIQUE: Chest, one view. FINDINGS: LUNGS: No focal consolidation. Please note that chest x-ray has limited sensitivity for the detection of pulmonary masses. PLEURA: No significant pleural effusion identified. No definite pneumothorax . CARDIOVASCULAR: Median sternotomy wires with evidence of CABG. Dense atherosclerotic calcifications the aorta. OSSEOUS STRUCTURES: No acute osseous abnormality identified. VISUALIZED UPPER ABDOMEN: Unremarkable. OTHER FINDINGS: None. IMPRESSION: No focal consolidation.
[2018-07-30 08:38] LABS: B-TYPE NATRIURETIC PEPTIDE 3930 pg/mL (0-450)
--- NOTE | 2018-07-30 08:52 | CP.PCM.CON ---
History of Present Illness - History of Present Illness History of Present Illness: Awake, alert, no distress, denies chest pain Reason for consultation: Cardiac evaluation for positive troponin Brief history of present illness: A 78 year old male who was brought to the ER due to generalized weakness and not eating well. He was given D50 in ER for low glucose level. History of diabetes, hypertension, hypothyroidism,unsteady gait, falls, dizziness, BPH, and coronary artery disease, post CABG in 2005. Consult was called for elevated troponin. Denies chest pain or shortness of breath. Seen and examined by me and Dr. Blas Review of Systems - Review of Systems All systems: reviewed and no additional remarkable complaints except Review of Systems: as per HPI Past Patient History - Infectious Disease Hx of Infectious Diseases: None - Tetanus Immunizations Tetanus Immunization: Unknown - Past Medical History & Family History Past Medical History?: Yes - Past Social History Smoking Status: Never Smoked - CARDIAC Hx Cardiac Disorders: Yes Hx Angina: No Hx Cardia Arrhythmia: Yes Hx Circulatory Problems: No Hx Congestive Heart Failure: No Hx Heart Murmur: No Hx Heart Transplant: No Hx Hypertension: Yes Hx Internal Defibrillator: No Hx Mitral Valve Prolapse: No Hx Pacemaker: No Hx Peripheral Edema: No Hx Peripheral Vascular Disease: No Other/Comment: CABG - PULMONARY Hx Respiratory Disorders: No Hx Asthma: No Hx Bronchitis: No Hx Chronic Obstructive Pulmonary Disease (COPD): No Hx Emphysema: No Hx Pneumonia: No Hx Respiratory Aspiration: No Hx Respiratory Tract Infection: No Hx Sleep Apnea: No Hx Tuberculosis: No - NEUROLOGICAL Hx Neurological Disorder: Yes Hx Alzheimer's Disease: No HX Cerebrovascular Accident: No Hx Dementia: No Hx Dizziness: Yes Hx Meningitis: No Hx Migraine: No Hx Parkinson's Disease: No Hx Seizures: No Hx Transient Ischemic Attacks (TIA): No - HEENT Hx HEENT Problems: Yes (EAR INFECTION WITH SURGERY TO L EAR) Hx Blind: No Hx Cataracts: Yes (WITH SX) Hx Deafness: No Hx Difficulty Chewing: Yes Hx Epistaxis: No Hx Glaucoma: No Hx Macular Degeneration: No Other/Comment: bilat cataracts - RENAL Hx Chronic Kidney Disease: Yes Hx Kidney Stones: Yes Hx Neurogenic Bladder: No Hx Pyelonephritis: No Hx Renal (Kidney) Cancer: No Hx Renal Failure: No - ENDOCRINE/METABOLIC Hx Endocrine Disorders: Yes Hx Adrenal Cancer: No Hx Diabetes Insipidus: No Hx Diabetes Mellitus Type 1: No Hx Diabetes Mellitus Type 2: Yes Hx Hyperthyroidism: No Hx Hypothyroidism: Yes Hx Systemic Lupus Erythematosus: No - HEMATOLOGICAL/ONCOLOGICAL Hx Blood Disorders: No Hx AIDS: No Hx Anemia: No Hx Cancer: No Hx Chemotherapy: No Hx Cirrhosis: No Hx Hemophilia: No Hx Hepatitis A: No Hx Hepatitis B: No Hx Hepatitis C: No Hx Metastesis: No Hx Shingles: No Hx Sickle Cell Disease: No Hx Unexplained Bleeding: No - INTEGUMENTARY Hx Dermatological Problems: No Hx Basil Cell: No Hx Eczema: No Hx Melanoma: No Hx Psoriasis: No Hx Squamous Cell: No - MUSCULOSKELETAL/RHEUMATOLOGICAL Hx Musculoskeletal Disorders: Yes Hx Arthritis: No Hx Back Pain: No Hx Degenerative Joint Disease: No Hx Falls: Yes Hx Fractures: No Hx Gout: No Hx Herniated Disk: No Hx Myasthenia Gravis: No Hx Osteoarthritis: No Hx Osteomyelitis: No Hx Osteoporosis: No Hx Rhabdomyolysis: No Hx Spinal Stenosis: No Hx Unsteady Gait: Yes - GASTROINTESTINAL Hx Gastrointestinal Disorders: Yes Hx Colostomy: No Hx Crohn's Disease: No Hx Diverticulitis: No Hx Gall Bladder Disease: No Hx Gastroesophageal Reflux: No Hx Ileostomy: No Hx Liver Failure: No Hx Pancreatitis: No HX Swallowing Problems: No - GENITOURINARY/GYNECOLOGICAL Hx Genitourinary Disorders: Yes Hx Hematuria: No Hx Incontinence: No Hx Prostate Problems: Yes (BPH) Hx Sexually Transmitted Disorders: No Hx Urinary Tract Infection: No Other/Comment: EPIDIDYMITIS,ORCHITIS - PSYCHIATRIC Hx Psychophysiologic Disorder: No Hx Anxiety: No Hx Bipolar Disorder: No Hx Depression: No Hx Emotional Abuse: No Hx Hallucinations: No Hx Panic Symptoms: No Hx Post Traumatic Stress Disorder: No Hx Psychosis: No Hx Physical Abuse: No Hx Schizophrenia: No Hx Sexual Abuse: No Hx Substance Use: No - SURGICAL HISTORY Hx Amputation: No Hx Appendectomy: No Hx Cardiac Catheterization: No Hx Cholecystectomy: No Hx Coronary Artery Bypass Graft: Yes (TRIPLE) Hx Coronary Stent: No Hx Gastric Bypass Surgery: No Hx Hysterectomy: No Hx Joint Replacement: No Hx Kidney Transplant: No Hx Liver Transplant: No Hx Mastectomy: No Hx Musculoskeletal Surgery: No Hx Open Heart Surgery: Yes (TRIPLE BYPASS) Hx Orthopedic Surgery: No Hx Splenectomy: No Hx Valve Replacement: No Other/Comment: BLITERAL CATARACT REMOVAL, EAR SX LEFT EAR - ANESTHESIA Hx Anesthesia: Yes Hx Anesthesia Reactions: No Hx Malignant Hyperthermia: No Meds Allergies/Adverse Reactions: Allergies Allergy/AdvReac Type Severity Reaction Status Date / Time No Known Allergies Allergy Verified 08/20/16 14:44 - Medications Medications: Current Medications Ascorbic Acid (Vitamin C 500 Mg Tab) 500 mg PO DAILY [facility] Aspirin (Ecotrin) 81 mg PO DAILY [facility] Cyanocobalamin (Vitamin B12 1000 Mcg Tab) 1,000 mcg PO DAILY [facility] Dextrose (Dextrose 5% In Water 1000 Ml) 1,000 mls @ 100 mls/hr IV .Q10H [facility] Last Admin: 07/30/18 00:31 Dose: 100 mls/hr Insulin Human Regular (Humulin R Low) 0 units SC ACHS [facility]; Protocol Levothyroxine Sodium (Synthroid) 100 mcg PO 0600 [facility] Last Admin: 07/30/18 06:04 Dose: 100 mcg Lisinopril (Zestril) 10 mg PO DAILY [facility] Metformin HCl (Glucophage) 1,000 mg PO BID [facility] Pantoprazole Sodium (Protonix Ec Tab) 40 mg PO 0600 [facility] Last Admin: 07/30/18 06:04 Dose: 40 mg Physical Exam - Constitutional Appears: Non-toxic, No Acute Distress - Head Exam Head Exam: NORMAL INSPECTION, NORMOCEPHALIC - Eye Exam Eye Exam: Normal appearance Pupil Exam: NORMAL ACCOMODATION - ENT Exam ENT Exam: Mucous Membranes Moist, Normal Exam - Respiratory Exam Respiratory Exam: Decreased Breath Sounds, Clear to Auscultation Bilateral, NORMAL BREATHING PATTERN - Cardiovascular Exam Cardiovascular Exam: REGULAR RHYTHM, +S1, +S2 Additional comments: denies shortness of breath, denies chest pain - GI/Abdominal Exam GI & Abdominal Exam: Normal Bowel Sounds, Soft - Neurological Exam Neurological exam: Alert, Oriented x3 - Psychiatric Exam Psychiatric exam: Normal Affect, Normal Mood - Skin Skin Exam: Dry, Normal Color, Warm Results - Vital Signs Recent Vital Signs: Last Vital Signs Temp 98.3 F 07/30/18 06:00 Pulse 64 07/30/18 06:00 Resp 20 07/30/18 06:00 BP 127/69 07/30/18 06:00 Pulse Ox 98 07/30/18 06:00 - Labs Result Diagrams: 07/29/18 23:35 07/29/18 23:35 Labs: Laboratory Results - last 24 hr 07/29/18 07/29/18 07/29/18 23:35 23:35 23:35 WBC 7.0 RBC 5.21 Hgb 13.6 L Hct 41.5 L MCV 79.7 L MCH 26.1 MCHC 32.8 RDW 15.8 H Plt Count 192 MPV 9.2 PT 12.4 INR 1.12 APTT 35.6 Sodium 139 Potassium 5.0 Chloride 101 Carbon Dioxide 27 Anion Gap 16 BUN 24 H Creatinine 1.1 Est GFR ( Amer) > 60 Est GFR (Non-Af Amer) > 60 POC Glucose (mg/dL) Random Glucose 72 Calcium 10.0 Iron TIBC % Saturation Total Bilirubin 0.5 AST 48 ALT 9 Alkaline Phosphatase 70 Lactate Dehydrogenase 586 Total Creatine Kinase 79 Troponin I 0.53 H* D NT-Pro-B Natriuret Pep Total Protein 8.2 Albumin 4.5 Globulin 3.7 Albumin/Globulin Ratio 1.2 Triglycerides Cholesterol LDL Cholesterol Direct HDL Cholesterol 07/30/18 07/30/18 07/30/18 00:13 01:06 07:00 WBC RBC Hgb Hct MCV MCH MCHC RDW Plt Count MPV PT INR APTT Sodium Potassium Chloride Carbon Dioxide Anion Gap BUN Creatinine Est GFR ( Amer) Est GFR (Non-Af Amer) POC Glucose (mg/dL) 68 193 H Random Glucose Calcium Iron TIBC % Saturation Total Bilirubin AST ALT Alkaline Phosphatase Lactate Dehydrogenase 491 Total Creatine Kinase 89 Troponin I 0.50 H* NT-Pro-B Natriuret Pep 3930 H Total Protein Albumin Globulin Albumin/Globulin Ratio Triglycerides 68 Cholesterol 140 LDL Cholesterol Direct 78 HDL Cholesterol 41 07/30/18 07/30/18 07:00 07:25 WBC RBC Hgb Hct MCV MCH MCHC RDW Plt Count MPV PT INR APTT Sodium Potassium Chloride Carbon Dioxide Anion Gap BUN Creatinine Est GFR ( Amer) Est GFR (Non-Af Amer) POC Glucose (mg/dL) 67 Random Glucose Calcium Iron 90 TIBC 321 % Saturation 28 Total Bilirubin AST ALT Alkaline Phosphatase Lactate Dehydrogenase Total Creatine Kinase Troponin I NT-Pro-B Natriuret Pep Total Protein Albumin Globulin Albumin/Globulin Ratio Triglycerides Cholesterol LDL Cholesterol Direct HDL Cholesterol Assessment & Plan - Assessment and Plan (Free Text) Assessment: A 78 year old male who was brought to the ER due to generalized weakness and not eating well. He was given D50 in ER for low glucose level. History of diabetes, hypertension, hypothyroidism,unsteady gait, falls, dizziness, BPH, and coronary artery disease, post CABG in 2005, Non STEMI, cataract surgery, left ear surgery, orchitis, epididymitis,reral stones. Consult was called for elevated troponin. . EKG showed Normal sinus rhythm, Initial troponin 0.53, repeat 0.50. Serial troponin. Chest X ray-unremarkable. He had Stress test on 08/25/15 showed normal result, no ischemia. Echo on 08/21/16 and showed LVEF 50%, mild to moderate LVH, septal hypokinesis, Grade I transmitral flow pattern. Cardiac cath was done on 08/23/16 for non STEMI and showed triple vessel coronary artery disease, Patent MALIK to left anterior descending, patent saphenous vein graft to diagonal, patent sequential saphenous vein graft to Diagonal 2 and obtuse marginal. LVEF 60%. Denies chest pain or shortness of breath, Non -STEMI, Troponin level at 2 pm. Possible cardiac catheterization in AM. Plan: Denies chest pain or shortness of breath Heart rate controlled Blood pressure controlled One more level of troponin in PM On ASA 81 mg daily, Synthroid 100 mcg daily, Lisinopril 10 mg daily Low dose betablocker Continue current treatment Continue current management Possible cardiac cath in AM NPO post midnight Plavix 300 mg today and 75 mg tomorrow. HgbA1c, lipid profile, TSH Further recommendations during hospital course Will follow up Plan and treatment discussed with Dr. Blas Thank you Dr. Calzada for the opportunity of taking care of Sheikh Jed - Date & Time Date: 07/30/18 Time: 06:15
--- NOTE | 2018-07-30 10:12 | CARD ---
APPROVED REPORT Date of service: 07/29/2018 EKG Measurement Heart [id number] <Conclusion> Sinus rhythm with premature atrial complexes Otherwise normal ECG
[2018-07-30] MEDS: Insulin Reg-LOW-Coverage SC SCH ×3 (11:07→17:25)
[2018-07-30 12:44] LABS: FOLATE > 20.0 ng/mL
--- NOTE | 2018-07-30 23:03 | CON ---
DATE: 07/30/2018 PULMONARY CONSULTATION REFERRING PHYSICIAN: Latisha Calzada MD REASON FOR CONSULT: Status post hypoglycemic episode, history of sleep apnea syndrome, and known compliant with CPAP. HISTORY OF PRESENT ILLNESS: This is a 78-year-old gentleman known to me from previous admission to the office, known to have a coronary artery disease, history of coronary artery bypass surgery about 13 years ago, diabetes, sleep apnea syndrome, hypertension, also has some Alzheimer's type dementia and recently lost his . Family called EMS, brought into emergency room, and found to have hypoglycemia, D50 was given. Apparently from the last few days, the patient is not eating well, he is not using his CPAP. Denies any chest pain at present. No abdominal pain. No dysuria, leg pain, or leg swelling. PAST MEDICAL HISTORY: As per history of present illness. ALLERGIES: NONE KNOWN. SOCIAL HISTORY: Nonsmoker and nondrinker. FAMILY HISTORY: No significant cardiopulmonary disease reported. MEDICATIONS: He is on Ecotrin 81 mg daily, metformin 1000 mg twice a day, getting insulin coverage, metoprolol tartrate 25 mg twice a day, Plavix 75 mg daily, Protonix 40 mg daily, Synthroid 100 mcg daily, vitamin B12 1000 mcg p.o. daily, vitamin C 500 mg daily, and Zestril 10 mg daily. REVIEW OF SYSTEMS: No headache. No rhinitis. Admit to have snoring, daytime sleepy and tired. No nausea. No vomiting. No constipation. No leg pain or leg swelling. PHYSICAL EXAMINATION: GENERAL: No acute distress. VITAL SIGNS: Temperature is 98, heart rate is 86, respiratory rate , blood pressure is 128/75, and pulse ox is 98% on room air. HEENT: Moist mucous membranes. Crowded airway. Mallampati score is 4. NECK: Supple. No JVD. LUNGS: Has a fair airflow with rhonchi. HEART: S1 and S2. ABDOMEN: Soft and nontender. No organomegaly. EXTREMITIES: No edema. NEUROLOGICAL: Awake and alert. Follow simple commands. LABORATORY DATA: Shows hemoglobin 13.6, hematocrit 41.5, WBC 7, and platelet count is 192. INR is 1.12 and PTT 36. Troponin is 0.41, iron is 90, TIBC 321, and LDH 491. Sodium 139, potassium 5, chloride 101, bicarbonate 27, BUN 24, creatinine 1.1, and calcium 10. AST 48, ALT 9, alk phos 70, and albumin 4.5. ProBNP 3930. Vitamin B12 is 950. Folate is more than 20. Had a chest x-ray done in the ER shows no focal infiltrate. IMPRESSION AND PLAN: Non-Q wave myocardial infarction, episode of hypoglycemia, diabetes, coronary artery disease, history of coronary artery bypass surgery about 13 years ago, sleep apnea syndrome, hypertension, Alzheimer's type dementia, and recently lost his life partner. The patient is seen by Cardiology. Pulmonary point of view, doing okay, keep head at [address] him on CPAP 7 cm, 30% oxygen while sleeping. If sedated, need close cardiopulmonary monitoring, gastric and deep venous thrombosis prophylaxes. Continue close followup lab and blood sugar noted. Metformin has been hold in anticipation possible cardiac workup in the morning. Thank you and we will follow with you. Nevin Arellano MD
--- NOTE | 2018-07-31 00:34 | HP ---
DATE OF EXAM: 07/30/2018 CHIEF COMPLAINT: Altered mental status, coughing, and shortness of breath. HISTORY OF PRESENT ILLNESS: Patient was seen and examined at bedside on 07/30/2018. Mr. Sheikh Adkins is a 78-year-old, my private patient with past medical history of diabetes mellitus, CABG in 2005, hypothyroidism noncompliant. Patient came to the emergency room for evaluation of hypoglycemia. At that time, the patient was apparently feeling weak, not eating well and experiencing diarrhea. It was noticed that he also had low blood sugar, coughing, shortness of breath. Patient had increased weakness that brought patient to the emergency room. D50 given on the route to ED by EMS. Patient felt better. He never lost consciousness. No fever. No chills. No hematuria. No hematochezia. No headache. No dizziness. Patient is a very poor historian. PAST MEDICAL HISTORY: Hypertension, dizziness, hypothyroidism, history of cataract surgery, history of coronary artery bypass graft, triple bypass. FAMILY HISTORY: Father and mother noncontributory. HABITS: Never smoked. No drugs. No ethanol. ALLERGIES: PATIENT IS NOT ALLERGIC WITH ANY MEDICATIONS. HOME MEDICATIONS: Aspirin, glipizide, Synthroid, metformin, omeprazole, ascorbic acid, cetirizine, vitamin B12. REVIEW OF SYSTEMS: Patient was seen and examined at the bedside in his room, still coughing, shortness of breath, but feeling better. Oriented x3. No fever. No chills. No hematuria. No hematochezia. No headache. No dizziness. No chest pain. No palpitations at this moment. PHYSICAL EXAMINATION VITAL SIGNS: Temperature 97.7, pulse 80, respiratory rate 18, blood pressure 150/78, pulse oximetry 99%. HEENT: Head; normocephalic and atraumatic. Eyes; PERRLA. Extraocular muscles are intact. Conjunctivae clear. Nose patent. Mucous membranes moist. NECK: Supple. No carotid bruits. No JVD or thyromegaly. CHEST: Bilaterally symmetrical. HEART: S1 and S2 positive. LUNGS: Clear to auscultation. ABDOMEN: Soft. Bowel sounds present. No organomegaly. EXTREMITIES: No edema. No cyanosis. NEUROLOGIC: The patient is awake and alert. Moving all four extremities. No focal deficits. LABORATORY DATA: White blood cell is 7, hemoglobin 13.2, hematocrit 41.5, and platelets 192. Troponin is 0.50. PT is 0.41. Sodium 139, potassium 5, BUN 24, creatinine 1.1. Hemoglobin A1c 8. ASSESSMENT AND PLAN: Mr. Sheikh Adkins is a 78-year-old male with increased BUN, hyperglycemia, uncontrolled diabetes mellitus, his hemoglobin A1c is 8, troponin positive,congestive heart failure, history of hypothyroidism, coronary artery disease, triple bypass. Dr. Blas gave patient Plavix 300 mg two days and then 175 mg daily for possible cardiac cath tomorrow. Non ST-elevation myocardial infarction troponin levels are high. Chest x-ray reviewed by me. History of hypoglycemia, coronary artery bypass graft in 2005, history of cardiac arrhythmia, history of insomnia, dizziness, history of cataract surgeries, and bilateral catheter removal. Patient lost his recently, looks a little bit depressed. Length of time discussion done. Education done. Repeat labs. We will follow up. Latisha Calzada MD
[2018-07-31] MEDS: Insulin Reg-LOW-Coverage SC SCH ×6 (00:42→22:19)
[2018-07-31] MEDS: Levothyroxine 100 MCG TAB PO SCH (06:12)
[2018-07-31] MEDS: Pantoprazole 40 mg EC Tab PO SCH (06:12)
[2018-07-31 06:53] LABS: MEAN CELL VOLUME 78.9 fl (80.0-105.0); MEAN CORPUSCULAR HEMOGLOBIN 25.9 pg (25.0-35.0); MEAN CORPUSCULAR HGB CONC 32.8 g/dl (31.0-37.0); MEAN PLATELET VOLUME 9.3 fl (7.0-11.0); RBC 5.02 10^6/uL (3.5-6.1); RED CELL DISTRIBUTION WIDTH 15.4 % (11.5-14.5); WHITE BLOOD COUNT 7.5 10^3/uL (4.5-11.0)
[2018-07-31 07:13] LABS: BLOOD UREA NITROGEN 16 mg/dL (7-21); CALCIUM 9.1 mg/dL (8.4-10.5); GFR NON-AFRICAN AMERICAN > 60
[2018-07-31] MEDS ORDERED: Enoxaparin 60 mg Syringe SC STA (10:48)
[2018-07-31 12:39] VITALS: RESP 18
--- NOTE | 2018-07-31 12:41 | PN ---
DATE: 07/31/2018 PULMONARY PROGRESS NOTE REFERRING PHYSICIAN: Dr. Latisha Calzada. SUBJECTIVE: The patient is seen lying in bed. No acute distress. No overnight events reported. No headache, rhinitis, cough, shortness of breath, chest pain, abdominal pain, nausea, vomiting, diarrhea, leg pain, or leg swelling reported. Reports not wearing CPAP machine last night. OBJECTIVE: GENERAL: No acute distress. VITAL SIGNS: Blood pressure 117/72, pulse 80, temperature 97.8, and oxygen saturation 94% on nasal cannula. HEENT: Moist mucous membranes. Crowded airway. Mallampati score 4. NECK: Supple. No JVD. LUNGS: Fair airflow bilaterally. CARDIOVASCULAR: S1 and S2. ABDOMEN: Soft and nontender. No distention. No organomegaly. EXTREMITIES: No bilateral lower extremity edema. NEUROLOGICAL: Awake, alert, and verbal. Following commands. MEDICATIONS: Reviewed. Vitamin C 500 mg daily, aspirin 81 mg daily, Plavix 75 mg daily, vitamin B12 1000 mcg daily, dextrose 5% in water 1000 mL at 100 mL per hour, Humulin R sliding scale a.c. and at bedtime, Synthroid 100 mcg daily, lisinopril 10 mg daily, metformin 1000 mg twice a day, metoprolol 25 mg twice a day, and Protonix 40 mg daily. LABORATORY DATA: Reviewed. WBC 7.5, RBC 5.02, hemoglobin 13, hematocrit 39.6, and platelets 211. Sodium 137, potassium 4.1, chloride 102, carbon dioxide 25, anion gap 14, BUN 16, creatinine 1, GFR greater than 60, POC glucose 250, random glucose 86, calcium 9.1, and TSH 5.76. IMPRESSION AND PLAN: Non-Q wave myocardial infarction, episode of hypoglycemia, coronary artery disease, diabetes mellitus, history of coronary artery bypass surgery 13 years ago, hypertension, Alzheimer's type dementia, and sleep apnea syndrome. Continue Cardiology followup. Pulmonary point of view, continue to encourage continuous positive airway pressure use at bedtime. Discussed with the patient importance of using continuous positive airway pressure and cardiopulmonary risk associated with sleep apnea. The patient verbalized understanding and says he will use continuous positive airway pressure tonight. Gastric prophylaxis and deep venous thrombosis prophylaxis. The patient needs close cardiopulmonary monitoring while under sedation. This patient was seen and examined with Dr. Arellano. Discussed assessment and plan as described above. This patient was seen and examined with Bam Prudence, nurse practitioner. Discussed assessment and plan as described above. Thank you for this consult. We will follow with you. Bam Lang APN Nevin Arellano MD [email or web address]
--- NOTE | 2018-07-31 13:48 | CP.PCM.APN ---
Subjective - Date & Time of Evaluation Date of Evaluation: 07/31/18 Time of Evaluation: 09:55 - Subjective Subjective: pt steven nd examined at bedide, pt stes he feels alright no cp or sob at this time Review of Systems - Constitutional Constitutional: absent: As Per HPI, Anorexia, Chills, Daytime Sleepiness, Excessive Sweating, Fatigue, Fever, Frequent Falls, Headache, Increased Appet ite, Lethargy, Malaise, Night Sweats, Snoring, Sleep Apnea, Weight Gain, Weight Loss, Weakness, Other - Cardiovascular Cardiovascular: absent: As Per HPI, Acrocyanosis, Chest Pain, Chest Pain at Rest, Chest Pain with Activity, Claudication, Diaphoresis, Dyspnea, Dyspnea on Exertion, Edema, Irregular Heart Rhythm, Pain Radiating to Arm/Neck/Jaw, Leg Edema, Leg Ulcers, Lightheadedness, Orthopnea, Palpitations, Paroxysmal Nocturnal Dyspnea, Pedal Edema, Radiating Pain, Rapid Heart Rate, Slow Heart Rate, Syncope, Other Objective - Vital Signs/Intake and Output Vital Signs (last 24 hours): Temp Pulse Resp BP Pulse Ox 98.8 F 64 18 114/57 L 94 L 07/31/18 12:00 07/31/18 12:00 07/31/18 12:00 07/31/18 12:00 07/31/18 06:00 Intake and Output: 07/31/18 07/31/18 06:59 18:59 Intake Total 420 Output Total 700 Balance -280 - Medications Medications: Current Medications Ascorbic Acid (Vitamin C 500 Mg Tab) 500 mg PO DAILY [facility] Last Admin: 07/31/18 10:25 Dose: 500 mg Aspirin (Ecotrin) 81 mg PO DAILY [facility] Last Admin: 07/31/18 10:25 Dose: 81 mg Clopidogrel Bisulfate (Plavix) 75 mg PO DAILY [facility] Last Admin: 07/31/18 10:25 Dose: 75 mg Cyanocobalamin (Vitamin B12 1000 Mcg Tab) 1,000 mcg PO DAILY [facility] Last Admin: 07/31/18 10:26 Dose: 1,000 mcg Dextrose (Dextrose 5% In Water 1000 Ml) 1,000 mls @ 100 mls/hr IV .Q10H [facility] Last Admin: 07/31/18 08:09 Dose: 100 mls/hr Insulin Human Regular (Humulin R Low) 0 units SC [facility]; Protocol Last Admin: 07/31/18 13:29 Dose: 3 units Levothyroxine Sodium (Synthroid) 100 mcg PO 0600 [facility] Last Admin: 07/31/18 06:12 Dose: 100 mcg Lisinopril (Zestril) 10 mg PO DAILY [facility] Last Admin: 07/31/18 10:25 Dose: 10 mg Metformin HCl (Glucophage) 1,000 mg PO BID [facility] Last Admin: 07/31/18 10:25 Dose: 1,000 mg Metoprolol Tartrate (Lopressor) 25 mg PO BID [facility] Last Admin: 07/31/18 10:25 Dose: 25 mg Pantoprazole Sodium (Protonix Ec Tab) 40 mg PO 0600 [facility] Last Admin: 07/31/18 06:12 Dose: 40 mg - Labs Labs: 07/31/18 05:45 07/31/18 05:45 PT 12.4 SECONDS (9.4-12.5) 07/29/18 23:35 INR 1.12 07/29/18 23:35 APTT 35.6 Seconds (26.9-38.3) 07/29/18 23:35 - Constitutional Appears: No Acute Distress - Head Exam Head Exam: NORMOCEPHALIC - Eye Exam Pupil Exam: PERRL - ENT Exam ENT Exam: Mucous Membranes Moist - Neck Exam Neck Exam: Normal Inspection - Respiratory Exam Respiratory Exam: NORMAL BREATHING PATTERN - Cardiovascular Exam Cardiovascular Exam: REGULAR RHYTHM, +S1, +S2 - GI/Abdominal Exam GI & Abdominal Exam: Soft, Normal Bowel Sounds - Neurological Exam Additional comments: moves all extremities Assessment and Plan - Assessment and Plan (Free Text) Plan: ITS Impressions Chest X-Ray 07/29/18 23:17 IMPRESSION: No focal consolidation. 78 yr old with pmh sig for htn, cad s/p cabg who presented with cp, elevated troponins, now being scheduled for cath with Dr Mendoza in am. Discuss plan with Dr Mendoza, will order lovenox x 1 dose today and make npo p mn for cath in am. plan of care discussed with patient and nurse. BPCI/TIC - BPCIA/TIC Educated pt/family on BPCIA/CIR/Med to Bed Programs: N/A Flyers given, including [facility] Beneficiary letter: N/A Pt/family verbalized understanding & agreed to program: N/A
--- NOTE | 2018-07-31 14:55 | PN ---
DATE: 07/31/2018 CARDIOLOGY FOLLOWUP SUBJECTIVE: The patient is in bed. He is awake and alert. He is chest pain free. PHYSICAL EXAMINATION VITAL SIGNS: Blood pressure 117/72 and heart rate in the 70s. NECK: Negative JVD. LUNGS: Without rales. HEART: Reveals S1 and S2. EXTREMITIES: Without edema. LABORATORY DATA: EKG shows nonspecific ST-T changes. Hemoglobin is 13. BUN and creatinine is unremarkable. The troponin was 0.41. The glucose yesterday was 215, currently it is 105. IMPRESSION: 1. Non-ST elevation myocardial infarction. 2. Multivessel coronary artery disease. 3. History of coronary artery bypass surgery. 4. Diabetes mellitus. 5. Previous normal left ventricular function. 6. Hypercholesterolemia. Given these findings, we will start the patient on aspirin and Plavix. One dose of subcutaneously Lovenox will be given. The patient is scheduled for cardiac catheterization in the morning. I have discussed this with the patient in detail who agrees. Rikki Mendoza MD
--- NOTE | 2018-08-01 03:33 | PN ---
DATE: 07/31/2018 SUBJECTIVE: The patient was seen and examined at the bedside late evening, looking comfortable. No fever, no chills. No hematuria, hematochezia. No headache or dizziness. No chest pain. No palpitation. The patient is seen by Dr. Arellano. I reviewed his notes. Discussion done with my nursing staff. PHYSICAL EXAMINATION: VITAL SIGNS: Blood pressure 120/70, pulse 80, temperature 97.8, oxygen saturation 94% on room air. HEENT: Head: Normocephalic, atraumatic. Eyes: PERRLA. Extraocular muscles are intact. Conjunctivae clear. Nose patent. Mucous membranes are moist. NECK: Supple. No carotid bruits. No JVD or thyromegaly. CHEST: Bilaterally symmetrical. HEART: S1 and S2 positive. LUNGS: Clear to auscultation. ABDOMEN: Soft. Bowel sounds present. No organomegaly. EXTREMITIES: No edema. No cyanosis. NEUROLOGIC: The patient is awake and alert. Moving all four extremities. No focal deficits. MEDICATIONS: Vitamin C, aspirin, Plavix, B12, Dextrose, insulin, Synthroid, lisinopril, metformin, metoprolol. LABORATORY DATA: White blood cells 7.5, hemoglobin 13, hematocrit 39.2, platelets 211. Sodium 137, potassium 4.1, BUN 16, creatinine 1. ASSESSMENT AND PLAN: Mr. Sheikh Adkins is a 78-year-old male with known Q-wave myocardial infarction, hypoglycemia, diabetes mellitus, noncompliant, coronary artery disease, history of bypass 13 years ago, hypertension, dementia, sleep apnea syndrome, continue cardiology followup. Pulmonary is on the case. Discussion done with nursing staff. The patient was seen by nurse practitioner, Gastrointestinal and deep venous thrombosis prophylaxis. For more details, see [employer] notes. Latisha Calzada MD MTDD
[2018-08-01 05:55] LABS: MEAN CELL VOLUME 78.4 fl (80.0-105.0); MEAN CORPUSCULAR HEMOGLOBIN 26.2 pg (25.0-35.0); MEAN CORPUSCULAR HGB CONC 33.4 g/dl (31.0-37.0); MEAN PLATELET VOLUME 9.4 fl (7.0-11.0); RBC 4.96 10^6/uL (3.5-6.1); RED CELL DISTRIBUTION WIDTH 15.2 % (11.5-14.5)
[2018-08-01 06:12] LABS: ALB/GLOB RATIO 1.2 (1.1-1.8); ALBUMIN 3.7 g/dL (3.0-4.8); ALT/SGPT 17 U/L (7-56); AST/SGOT 29 U/L (17-59); BLOOD UREA NITROGEN 17 mg/dL (7-21); CALCIUM 8.9 mg/dL (8.4-10.5); GFR NON-AFRICAN AMERICAN > 60
[2018-08-01] MEDS: Pantoprazole 40 mg EC Tab PO SCH (07:03)
[2018-08-01] MEDS: Levothyroxine 100 MCG TAB PO SCH (07:04)
[2018-08-01] MEDS: Insulin Reg-LOW-Coverage SC SCH ×4 (07:30→21:31)
[2018-08-01] MEDS ORDERED: Iohexol 350mgl/ml 50 ML ONE (09:44)
[2018-08-01] MEDS ORDERED: Lidocaine PF 2% (5 ml) Inj (For Cardiac Arrhy) ONE (09:44)
[2018-08-01] MEDS ORDERED: Iodixanol 320 MG/ML 200 ML BOTTLE IV ONE (09:44)
[2018-08-01] MEDS ORDERED: Iodixanol 320 MG/ML 100 ML BOTTLE IV ONE (09:44)
[2018-08-01] MEDS ORDERED: Midazolam 2 MG/2 ML VIAL ONE (10:23)
[2018-08-01] MEDS ORDERED: Sodium Chloride 0.9% 1,000 ML IV SCH (11:15)
--- NOTE | 2018-08-01 13:13 | PN ---
DATE: 08/01/2018 PULMONARY PROGRESS NOTE REFERRING PHYSICIAN: Dr. Latisha Calzada. SUBJECTIVE: The patient is seen lying in bed. No acute distress. No overnight events reported. Status post cardiac catheterization done today. No headache, rhinitis, cough, shortness of breath, chest pain, abdominal pain, nausea, vomiting, diarrhea, leg pain, or leg swelling reported. OBJECTIVE: GENERAL: No acute distress. VITAL SIGNS: Blood pressure 135/67, pulse 55, temperature 97.3 and oxygen saturation 96% on room air. HEENT: Moist mucous membranes. Crowded airway. Mallampati score 4. NECK: Supple. No JVD. LUNGS: Fair airflow bilaterally. CARDIOVASCULAR: S1 and S2. ABDOMEN: Soft and nontender. No distention. No organomegaly. EXTREMITIES: No bilateral lower extremity edema. NEUROLOGICAL: Awake, alert, and verbal. Following commands. MEDICATIONS: Reviewed. Vitamin C 500 mg daily, aspirin 81 mg daily, Lipitor 40 mg at dinner, Plavix 75 mg daily, vitamin B12 1000 mcg daily, Humulin R sliding scale a.c. and at bedtime, Synthroid 100 mcg daily, lisinopril 10 mg daily, metformin 1000 mg twice a day, metoprolol tartrate 25 mg twice a day, and Protonix 40 mg daily. Sodium chloride 0.9% at 1000 mL at 100 mL per hour. LABORATORY DATA: Reviewed. WBC 7, RBC 4.96, hemoglobin 13, hematocrit 38.9, and platelets 217. Sodium 136, potassium 4.3, chloride 102, carbon dioxide 27, anion gap 11, BUN 17, creatinine 1.1, GFR greater than 60, POC glucose 95, random glucose 86, calcium 8.9, total bilirubin 0.4, AST 29, ALT 17, alkaline phosphatase 67, total protein 6.9, albumin 3.7, globulin 3.2 and albumin-globulin ratio 1.2. IMPRESSION AND PLAN: Non-Q wave myocardial infarction, episode of hypoglycemia, coronary artery disease, diabetes mellitus, history of coronary artery bypass surgery 13 years ago, Alzheimer's type dementia, hypertension and sleep apnea syndrome. Status post cardiac catheterization done today. Continue Cardiology followup. Pulmonary point of view, continue to encourage continuous positive airway pressure use at bedtime. Sleep apnea precaution, head of bed elevated at 45 degrees, gastric prophylaxis and fall precautions. This patient was seen and examined with Dr. Arellano. Discussed assessment and plan as described above. This patient was seen and examined with Bam Lang, nurse practitioner. Discussed assessment and plan as described above. Thank you for this consult. We will follow with you. Bam Lang APN Nevin Arellano MD
--- NOTE | 2018-08-01 13:22 | CARDCATH ---
PROCEDURE DATE: 08/01/2018 HISTORY: The patient is a 78-year-old male who presents with a non-STEMI and unstable angina. The patient has multiple cardiac risk factors including diabetes mellitus and is status post coronary bypass surgery. Because of this, cardiac catheterization was recommended. PROCEDURES: Left heart catheterization with coronary arteriography, left ventriculogram, supra-aortic angiogram, left internal mammary artery angiogram, and saphenous vein graft angiogram followed by percutaneous transluminal coronary angioplasty and stent of a protected distal left main and proximal and ostial circumflex artery lesion. The right femoral artery was cannulated with 6-Tristanian sheath. There were no complications. I performed moderate sedation which included the presence of an independent trained observer that assisted in monitoring the patient's level of consciousness and physiologic status. After administration of Versed and fentanyl, my intra-service time was 60 minutes. Findings on catheterization revealed a left ventricle that contracted normally. Estimated ejection fraction is 60%. Supra-aortic valvular injection revealed no aortic insufficiency. The right coronary artery was a nondominant vessel that was found to be diffusely diseased. The left main artery revealed an 80% stenoses in its distal portion. Contiguous with the lesion was a 90% stenosis in the ostium and proximal portion of the circumflex artery. The LAD was occluded in its proximal portion. The MALIK to the LAD was found to be patent and provided good antegrade flow to a thin and diffusely diseased LAD. The saphenous vein graft to the diagonal vessel was found to be patent. There was a jump graft from the second diagonal to the obtuse marginal branch which was found to be patent. The patient was started on intravenous Angiomax. Under fluoroscopic guide, the guiding catheter was placed in the ostium of the left main artery. An 0.014 ATW wire was used to cross the lesion in the distal left main into the circumflex artery. A 3.0 was utilized to predilate the lesion. This is followed by implantation of a 3.5 x 15 mm drug-eluting stent at 18 ounces of pressure. Repeat coronary arteriography after balloon deflation removal revealed an excellent result with minimal residual stenoses and JULIA III flow. Manual compression was used to close the femoral artery site due to diffuse peripheral vascular disease. The patient tolerated the procedure well. In summary, the procedure was PTCA and stent of a critical distal left main and ostial circumflex stenoses. Drug-eluting stent was utilized. Cardiac catheterization reveals triple-vessel CAD. Normal LV function. Patent MALIK to the LAD. Patent saphenous vein graft to the diagonal vessel. Patent jump graft to another diagonal and posterior lateral branch. Given these findings, the patient will need to remain on aspirin indefinitely and Plavix for at least a year and undergo a cardiac risk reduction program. Rikki Mendoza MD
--- NOTE | 2018-08-01 14:52 | CARD ---
APPROVED REPORT Date of service: 08/01/2018 EKG Measurement Heart [id number] <Conclusion> Sinus bradycardia Otherwise normal ECG
[2018-08-01 18:24] LABS: PH,URINE 6.5 (4.7-8.0); URINE BILIRUBIN NEGATIVE (NEGATIVE); URINE BLOOD NEGATIVE (NEGATIVE); URINE GLUCOSE (UA) NEGATIVE (NEGATIVE); URINE LEUKOCYTE ESTERASE NEGATIVE Leu/uL (NEGATIVE); URINE PROTEIN NEGATIVE mg/dL (<30 mg/dL); URINE UROBILINOGEN 0.2 E.U./dL (<1 E.U./dL)
[2018-08-01 18:26] LABS: URINE APPEARANCE CLEAR (CLEAR); URINE COLOR YELLOW (YELLOW)
--- NOTE | 2018-08-01 19:39 | CP.PCM.CON ---
<Candice Leach - Last Filed: 08/01/18 19:31> History of Present Illness - History of Present Illness History of Present Illness: Gastroenterology Fellow/PGY6 Consult Note 78 year old male with PMH of Diabetes, Hypothyroidism, CAD s/p CABG 2005, and hearing impairment presenting with weakness and shortness of breath. Patient notes to have change in baseline mental status prompting ER evaluation. Since admission, confirmed to have NSTEMI with unstable angina and is status post cardiac catheterization today showing multi-vessel disease RCA/LCX and ostium/ left main/LAD s/p PTCA with drug-eluting stent placement of left main/LCX. GI consultation for diarrhea. At present, patient denies diarrhea and has had no further bowel movements since admission. Nursing confirms patient had episode of diarrhea coming in from home to ER. Prior EGD 2018 for dysphagia showed middle/lower esophageal food residue with dilated esophagus and reflux esophagitsi noted at lower esophageal biopsy and mid-esophagus showed aparna. Family History- denies stomach cancer, colon cancer Social History- denies tobacco, alcohol, illicit drug olya Surgical Hsitory - CABG, B/L cataract Review of Systems - Review of Systems Review of Systems: 12-point review of systems negative except for as above Past Patient History - Infectious Disease Hx of Infectious Diseases: None - Tetanus Immunizations Tetanus Immunization: Unknown - Past Medical History & Family History Past Medical History?: Yes - Past Social History Smoking Status: Never Smoked - CARDIAC Hx Cardiac Disorders: Yes Hx Angina: No Hx Cardia Arrhythmia: Yes Hx Circulatory Problems: No Hx Congestive Heart Failure: No Hx Heart Murmur: No Hx Heart Transplant: No Hx Hypertension: Yes Hx Internal Defibrillator: No Hx Mitral Valve Prolapse: No Hx Pacemaker: No Hx Peripheral Edema: No Hx Peripheral Vascular Disease: No Other/Comment: CABG - PULMONARY Hx Respiratory Disorders: No Hx Asthma: No Hx Bronchitis: No Hx Chronic Obstructive Pulmonary Disease (COPD): No Hx Emphysema: No Hx Pneumonia: No Hx Respiratory Aspiration: No Hx Respiratory Tract Infection: No Hx Sleep Apnea: No Hx Tuberculosis: No - NEUROLOGICAL Hx Neurological Disorder: Yes Hx Alzheimer's Disease: No HX Cerebrovascular Accident: No Hx Dementia: No Hx Dizziness: Yes Hx Meningitis: No Hx Migraine: No Hx Parkinson's Disease: No Hx Seizures: No Hx Transient Ischemic Attacks (TIA): No - HEENT Hx HEENT Problems: Yes (EAR INFECTION WITH SURGERY TO L EAR) Hx Blind: No Hx Cataracts: Yes (WITH SX) Hx Deafness: No Hx Difficulty Chewing: Yes Hx Epistaxis: No Hx Glaucoma: No Hx Macular Degeneration: No Other/Comment: bilat cataracts - RENAL Hx Chronic Kidney Disease: Yes Hx Kidney Stones: Yes Hx Neurogenic Bladder: No Hx Pyelonephritis: No Hx Renal (Kidney) Cancer: No Hx Renal Failure: No - ENDOCRINE/METABOLIC Hx Endocrine Disorders: Yes Hx Adrenal Cancer: No Hx Diabetes Insipidus: No Hx Diabetes Mellitus Type 1: No Hx Diabetes Mellitus Type 2: Yes Hx Hyperthyroidism: No Hx Hypothyroidism: Yes Hx Systemic Lupus Erythematosus: No - HEMATOLOGICAL/ONCOLOGICAL Hx Blood Disorders: No Hx AIDS: No Hx Anemia: No Hx Cancer: No Hx Chemotherapy: No Hx Cirrhosis: No Hx Hemophilia: No Hx Hepatitis A: No Hx Hepatitis B: No Hx Hepatitis C: No Hx Metastesis: No Hx Shingles: No Hx Sickle Cell Disease: No Hx Unexplained Bleeding: No - INTEGUMENTARY Hx Dermatological Problems: No Hx Basil Cell: No Hx Eczema: No Hx Melanoma: No Hx Psoriasis: No Hx Squamous Cell: No - MUSCULOSKELETAL/RHEUMATOLOGICAL Hx Musculoskeletal Disorders: Yes Hx Arthritis: No Hx Back Pain: No Hx Degenerative Joint Disease: No Hx Falls: Yes Hx Fractures: No Hx Gout: No Hx Herniated Disk: No Hx Myasthenia Gravis: No Hx Osteoarthritis: No Hx Osteomyelitis: No Hx Osteoporosis: No Hx Rhabdomyolysis: No Hx Spinal Stenosis: No Hx Unsteady Gait: Yes - GASTROINTESTINAL Hx Gastrointestinal Disorders: Yes Hx Colostomy: No Hx Crohn's Disease: No Hx Diverticulitis: No Hx Gall Bladder Disease: No Hx Gastroesophageal Reflux: No Hx Ileostomy: No Hx Liver Failure: No Hx Pancreatitis: No HX Swallowing Problems: No - GENITOURINARY/GYNECOLOGICAL Hx Genitourinary Disorders: Yes Hx Hematuria: No Hx Incontinence: No Hx Prostate Problems: Yes (BPH) Hx Sexually Transmitted Disorders: No Hx Urinary Tract Infection: No Other/Comment: EPIDIDYMITIS,ORCHITIS - PSYCHIATRIC Hx Psychophysiologic Disorder: No Hx Anxiety: No Hx Bipolar Disorder: No Hx Depression: No Hx Emotional Abuse: No Hx Hallucinations: No Hx Panic Symptoms: No Hx Post Traumatic Stress Disorder: No Hx Psychosis: No Hx Physical Abuse: No Hx Schizophrenia: No Hx Sexual Abuse: No Hx Substance Use: No - SURGICAL HISTORY Hx Amputation: No Hx Appendectomy: No Hx Cardiac Catheterization: No Hx Cholecystectomy: No Hx Coronary Artery Bypass Graft: Yes (TRIPLE) Hx Coronary Stent: No Hx Gastric Bypass Surgery: No Hx Hysterectomy: No Hx Joint Replacement: No Hx Kidney Transplant: No Hx Liver Transplant: No Hx Mastectomy: No Hx Musculoskeletal Surgery: No Hx Open Heart Surgery: Yes (TRIPLE BYPASS) Hx Orthopedic Surgery: No Hx Splenectomy: No Hx Valve Replacement: No Other/Comment: BLITERAL CATARACT REMOVAL, EAR SX LEFT EAR - ANESTHESIA Hx Anesthesia: Yes Hx Anesthesia Reactions: No Hx Malignant Hyperthermia: No Meds Allergies/Adverse Reactions: Allergies Allergy/AdvReac Type Severity Reaction Status Date / Time No Known Allergies Allergy Verified 08/20/16 14:44 - Medications Medications: Current Medications Ascorbic Acid (Vitamin C 500 Mg Tab) 500 mg PO DAILY [facility] Last Admin: 08/01/18 12:16 Dose: Not Given Aspirin (Ecotrin) 81 mg PO DAILY [facility] Last Admin: 08/01/18 12:15 Dose: Not Given Atorvastatin Calcium (Lipitor) 40 mg PO DIN [facility] Clopidogrel Bisulfate (Plavix) 75 mg PO DAILY [facility] Last Admin: 08/01/18 12:14 Dose: Not Given Cyanocobalamin (Vitamin B12 1000 Mcg Tab) 1,000 mcg PO DAILY [facility] Last Admin: 08/01/18 12:16 Dose: Not Given Insulin Human Regular (Humulin R Low) 0 units SC [facility]; Protocol Last Admin: 08/01/18 16:30 Dose: Not Given Levothyroxine Sodium (Synthroid) 100 mcg PO 0600 [facility] Last Admin: 08/01/18 07:04 Dose: 100 mcg Lisinopril (Zestril) 10 mg PO DAILY [facility] Last Admin: 08/01/18 12:16 Dose: Not Given Metformin HCl (Glucophage) 1,000 mg PO BID [facility] Last Admin: 08/01/18 18:26 Dose: Not Given Metoprolol Tartrate (Lopressor) 25 mg PO BID [facility] Last Admin: 08/01/18 12:14 Dose: Not Given Pantoprazole Sodium (Protonix Ec Tab) 40 mg PO 0600 [facility] Last Admin: 08/01/18 07:03 Dose: 40 mg Physical Exam - Constitutional Appears: Non-toxic, No Acute Distress - Head Exam Head Exam: ATRAUMATIC, NORMOCEPHALIC - Eye Exam Eye Exam: EOMI, PERRL. absent: Scleral icterus Pupil Exam: PERRL. absent: Miosis, Mydriatic - ENT Exam ENT Exam: Mucous Membranes Moist, Normal Oropharynx - Neck Exam Neck exam: Positive for: Full Rom, Normal Inspection - Respiratory Exam Respiratory Exam: Clear to Auscultation Bilateral. absent: Rales, Rhonchi, Wheezes - Cardiovascular Exam Cardiovascular Exam: RRR, +S1, +S2. absent: Gallop, Rubs - GI/Abdominal Exam GI & Abdominal Exam: Normal Bowel Sounds, Soft. absent: Distended, Firm, Guar ding, Organomegaly, Rebound, Rigid, Tenderness - Neurological Exam Neurological exam: Alert - Psychiatric Exam Psychiatric exam: Normal Affect, Normal Mood - Skin Skin Exam: Dry, Intact, Normal Color, Warm Results - Vital Signs Recent Vital Signs: Last Vital Signs Temp 97.4 F L 08/01/18 18:00 Pulse 61 08/01/18 18:00 Resp 18 08/01/18 18:00 BP 134/62 08/01/18 18:00 Pulse Ox 96 08/01/18 06:00 - Labs Result Diagrams: 08/01/18 05:00 08/01/18 05:00 Labs: Laboratory Results - last 24 hr 07/31/18 08/01/18 08/01/18 21:27 05:00 05:00 WBC 7.0 RBC 4.96 Hgb 13.0 L Hct 38.9 L MCV 78.4 L MCH 26.2 MCHC 33.4 RDW 15.2 H Plt Count 217 MPV 9.4 Sodium 136 Potassium 4.3 Chloride 102 Carbon Dioxide 27 Anion Gap 11 BUN 17 Creatinine 1.1 Est GFR ( Amer) > 60 Est GFR (Non-Af Amer) > 60 POC Glucose (mg/dL) 159 H Random Glucose 86 Calcium 8.9 Total Bilirubin 0.4 AST 29 ALT 17 Alkaline Phosphatase 67 Total Protein 6.9 Albumin 3.7 Globulin 3.2 Albumin/Globulin Ratio 1.2 Urine Color Urine Appearance Urine pH Ur Specific [place] Urine Protein Urine Glucose (UA) Urine Ketones Urine Blood Urine Nitrate Urine Bilirubin Urine Urobilinogen Ur Leukocyte Esterase 08/01/18 08/01/18 08/01/18 07:16 17:00 18:18 WBC RBC Hgb Hct MCV MCH MCHC RDW Plt Count MPV Sodium Potassium Chloride Carbon Dioxide Anion Gap BUN Creatinine Est GFR ( Amer) Est GFR (Non-Af Amer) POC Glucose (mg/dL) 95 152 H Random Glucose Calcium Total Bilirubin AST ALT Alkaline Phosphatase Total Protein Albumin Globulin Albumin/Globulin Ratio Urine Color Yellow Urine Appearance Clear Urine pH 6.5 Ur Specific [place] <= 1.005 Urine Protein Negative Urine Glucose (UA) Negative Urine Ketones Negative Urine Blood Negative Urine Nitrate Negative Urine Bilirubin Negative Urine Urobilinogen 0.2 Ur Leukocyte Esterase Negative Assessment & Plan - Assessment and Plan (Free Text) Assessment: 78 year old male with PMH of Diabetes, Hypothyroidism, CAD s/p CABG 2005, and hearing impairment presenting with weakness and shortness of breath. Active treatment of NSTEMI with unstable angina status post cardiac catheterization (08/01) with multi-vessel disease RCA/LCX and ostium/ left main/LAD s/p PTCA with drug-eluting stent placement of left main/LCX. GI consultation for diarrhea. Plan: -no further episodes of diarrhea since admission -acute episode of loose stool without chronic features -currently resolved and possible association with presentation for angina -will rule out infectious diarrhea if diarrhea re-occurs -benign abdomen on exam -tolerating regular diet -will follow clinical course <Juan Poole V - Last Filed: 08/01/18 23:22> Meds - Medications Medications: Current Medications Ascorbic Acid (Vitamin C 500 Mg Tab) 500 mg PO DAILY [facility] Last Admin: 08/01/18 12:16 Dose: Not Given Aspirin (Ecotrin) 81 mg PO DAILY [facility] Last Admin: 08/01/18 12:15 Dose: Not Given Atorvastatin Calcium (Lipitor) 40 mg PO DIN [facility] Clopidogrel Bisulfate (Plavix) 75 mg PO DAILY [facility] Last Admin: 08/01/18 12:14 Dose: Not Given Cyanocobalamin (Vitamin B12 1000 Mcg Tab) 1,000 mcg PO DAILY [facility] Last Admin: 08/01/18 12:16 Dose: Not Given Insulin Human Regular (Humulin R Low) 0 units SC [facility]; Protocol Last Admin: 08/01/18 21:31 Dose: Not Given Levothyroxine Sodium (Synthroid) 100 mcg PO 0600 [facility] Last Admin: 08/01/18 07:04 Dose: 100 mcg Lisinopril (Zestril) 10 mg PO DAILY [facility] Last Admin: 08/01/18 12:16 Dose: Not Given Metformin HCl (Glucophage) 1,000 mg PO BID [facility] Last Admin: 08/01/18 18:26 Dose: Not Given Metoprolol Tartrate (Lopressor) 25 mg PO BID [facility] Last Admin: 08/01/18 21:31 Dose: Not Given Pantoprazole Sodium (Protonix Ec Tab) 40 mg PO 0600 [facility] Last Admin: 08/01/18 07:03 Dose: 40 mg Results - Vital Signs Recent Vital Signs: Last Vital Signs Temp 97.4 F L 08/01/18 18:00 Pulse 68 08/01/18 22:00 Resp 18 08/01/18 18:00 BP 133/46 L 08/01/18 18:40 Pulse Ox 96 08/01/18 06:00 - Labs Result Diagrams: 08/01/18 05:00 08/01/18 05:00 Labs: Laboratory Results - last 24 hr 07/31/18 08/01/18 08/01/18 21:27 05:00 05:00 WBC 7.0 RBC 4.96 Hgb 13.0 L Hct 38.9 L MCV 78.4 L MCH 26.2 MCHC 33.4 RDW 15.2 H Plt Count 217 MPV 9.4 Sodium 136 Potassium 4.3 Chloride 102 Carbon Dioxide 27 Anion Gap 11 BUN 17 Creatinine 1.1 Est GFR ( Amer) > 60 Est GFR (Non-Af Amer) > 60 POC Glucose (mg/dL) 159 H Random Glucose 86 Calcium 8.9 Total Bilirubin 0.4 AST 29 ALT 17 Alkaline Phosphatase 67 Total Protein 6.9 Albumin 3.7 Globulin 3.2 Albumin/Globulin Ratio 1.2 Urine Color Urine Appearance Urine pH Ur Specific [place] Urine Protein Urine Glucose (UA) Urine Ketones Urine Blood Urine Nitrate Urine Bilirubin Urine Urobilinogen Ur Leukocyte Esterase 08/01/18 08/01/18 08/01/18 07:16 17:00 18:18 WBC RBC Hgb Hct MCV MCH MCHC RDW Plt Count MPV Sodium Potassium Chloride Carbon Dioxide Anion Gap BUN Creatinine Est GFR ( Amer) Est GFR (Non-Af Amer) POC Glucose (mg/dL) 95 152 H Random Glucose Calcium Total Bilirubin AST ALT Alkaline Phosphatase Total Protein Albumin Globulin Albumin/Globulin Ratio Urine Color Yellow Urine Appearance Clear Urine pH 6.5 Ur Specific [place] <= 1.005 Urine Protein Negative Urine Glucose (UA) Negative Urine Ketones Negative Urine Blood Negative Urine Nitrate Negative Urine Bilirubin Negative Urine Urobilinogen 0.2 Ur Leukocyte Esterase Negative 08/01/18 21:25 WBC RBC Hgb Hct MCV MCH MCHC RDW Plt Count MPV Sodium Potassium Chloride Carbon Dioxide Anion Gap BUN Creatinine Est GFR ( Amer) Est GFR (Non-Af Amer) POC Glucose (mg/dL) 116 H Random Glucose Calcium Total Bilirubin AST ALT Alkaline Phosphatase Total Protein Albumin Globulin Albumin/Globulin Ratio Urine Color Urine Appearance Urine pH Ur Specific [place] Urine Protein Urine Glucose (UA) Urine Ketones Urine Blood Urine Nitrate Urine Bilirubin Urine Urobilinogen Ur Leukocyte Esterase Attending/Attestation - Attestation I have personally seen and examined this patient.: Yes I have fully participated in the care of the patient.: Yes I have reviewed all pertinent clinical information: Yes Notes (Text): This patient was seen and evaluated along with the GI fellow earlier. This is an addendum to the progress note reported by the fellow. 08/01/18 23:15 patient did not have any further episodes of bleeding. Status post cardiac cath today Consider stool for C. difficile if any recurrence of diarrhea Thank you very much for allowing us to part spent in the care of the patient 08/01/18 23:19
--- NOTE | 2018-08-01 19:50 | CP.PCM.PN ---
Subjective - Date & Time of Evaluation Date of Evaluation: 08/01/18 Time of Evaluation: 07:00 Objective - Vital Signs/Intake and Output Vital Signs (last 24 hours): Temp Pulse Resp BP Pulse Ox 97.4 F L 61 18 134/62 96 08/01/18 18:00 08/01/18 18:00 08/01/18 18:00 08/01/18 18:00 08/01/18 06:00 - Medications Medications: Current Medications Ascorbic Acid (Vitamin C 500 Mg Tab) 500 mg PO DAILY [facility] Last Admin: 08/01/18 12:16 Dose: Not Given Aspirin (Ecotrin) 81 mg PO DAILY [facility] Last Admin: 08/01/18 12:15 Dose: Not Given Atorvastatin Calcium (Lipitor) 40 mg PO DIN [facility] Clopidogrel Bisulfate (Plavix) 75 mg PO DAILY [facility] Last Admin: 08/01/18 12:14 Dose: Not Given Cyanocobalamin (Vitamin B12 1000 Mcg Tab) 1,000 mcg PO DAILY [facility] Last Admin: 08/01/18 12:16 Dose: Not Given Insulin Human Regular (Humulin R Low) 0 units SC [facility]; Protocol Last Admin: 08/01/18 16:30 Dose: Not Given Levothyroxine Sodium (Synthroid) 100 mcg PO 0600 [facility] Last Admin: 08/01/18 07:04 Dose: 100 mcg Lisinopril (Zestril) 10 mg PO DAILY [facility] Last Admin: 08/01/18 12:16 Dose: Not Given Metformin HCl (Glucophage) 1,000 mg PO BID [facility] Last Admin: 08/01/18 18:26 Dose: Not Given Metoprolol Tartrate (Lopressor) 25 mg PO BID [facility] Last Admin: 08/01/18 12:14 Dose: Not Given Pantoprazole Sodium (Protonix Ec Tab) 40 mg PO 0600 [facility] Last Admin: 08/01/18 07:03 Dose: 40 mg - Labs Labs: 08/01/18 05:00 08/01/18 05:00 PT 12.4 SECONDS (9.4-12.5) 07/29/18 23:35 INR 1.12 07/29/18 23:35 APTT 35.6 Seconds (26.9-38.3) 07/29/18 23:35
--- NOTE | 2018-08-01 20:50 | PN ---
DATE: 08/01/2018 SUBJECTIVE: The patient was seen and examined at the bedside on 08/01/2018. This progress note is for 08/01/2018. As per family, the patient is having diarrhea. Given the patient is not feeling, it looks like fully incontinent. I sent stool for C. diff ulcerative colitis and put consult by Dr. Poole, GI evaluation. Today, the patient went for catheterization. PHYSICAL EXAMINATION VITAL SIGNS: Blood pressure 135/67, pulse 55, temperature 97.3, oxygen saturation 96% on room air. HEENT: Head normocephalic and atraumatic. Eyes PERRLA. Vision intact. Conjunctivae clear. Nose patent. Mucous membranes moist. NECK: Supple, no carotid bruit, no acute thyromegaly. CHEST: Bilaterally symmetrical. HEART: S1, S2 positive. LUNGS: Clear to auscultation. ABDOMEN: Soft, bowel sounds present. No organomegaly. EXTREMITIES: No edema, no cyanosis. NEUROLOGIC: The patient is awake, alert. Moving all 4 extremities. No focal deficit. LABORATORY DATA: White blood cells 7.0, hemoglobin 13, hematocrit 38.9. Sodium 136, potassium 4.3, BUN 17, creatinine 1.1, glucose 95, calcium 8.9. AST 29. MEDICATIONS: Vitamin C, aspirin and Lipitor, Plavix, B12, insulin, Synthroid, lisinopril, metformin, Protonix, ASSESSMENT AND PLAN: Mr. Sheikh Adkins is a 78-year-old male with multiple medical problems, has a non-Q wave myocardial infarction, status post hypoglycemia, coronary artery disease, diabetes mellitus, history of coronary artery bypass surgery 13 years ago, dementia, now has stool incontinence. Sent stool for Clostridium difficile ulcerative colitis and gastrointestinal consult called. The patient went for catheterization by Dr. Islas. I will discuss with Dr. Islas, patient and nursing staff. We will follow up. Latisha Calzada MD [facility]
[2018-08-02] MEDS: Levothyroxine 100 MCG TAB PO SCH (05:23)
[2018-08-02] MEDS: Pantoprazole 40 mg EC Tab PO SCH (05:24)
[2018-08-02 05:36] VITALS: O2SAT 96
[2018-08-02 07:16] LABS: BASO # 0.02 K/mm3 (0.0-2.0); BASO % 0.3 % (0.0-3.0); EOS % 14.1 % (1.5-5.0); LYMPH # 1.7 (1.2-3.4); LYMPH % 24.7 % (22.0-35.0); MEAN CELL VOLUME 78.6 fl (80.0-105.0); MEAN CORPUSCULAR HEMOGLOBIN 25.5 pg (25.0-35.0); MEAN CORPUSCULAR HGB CONC 32.5 g/dl (31.0-37.0); MEAN PLATELET VOLUME 9.4 fl (7.0-11.0); MONO # 0.5 (0.1-0.6); MONO % 7.4 % (1.0-6.0); RBC 5.09 10^6/uL (3.5-6.1); RED CELL DISTRIBUTION WIDTH 15.3 % (11.5-14.5); WHITE BLOOD COUNT 6.8 10^3/uL (4.5-11.0)
[2018-08-02 07:23] LABS: BLOOD UREA NITROGEN 15 mg/dL (7-21); CALCIUM 8.8 mg/dL (8.4-10.5); GFR NON-AFRICAN AMERICAN > 60
[2018-08-02] MEDS: Insulin Reg-LOW-Coverage SC SCH ×2 (08:02→11:48)
--- NOTE | 2018-08-02 10:14 | PN ---
DATE: 08/02/2018 CARDIOLOGY FOLLOWUP SUBJECTIVE: The patient is awake, alert without symptoms. PHYSICAL EXAMINATION VITAL SIGNS: Blood pressure 133/66, heart rate in the 60s. NECK: Negative JVD. LUNGS: Without rales. HEART: S1, S2. EXTREMITIES: Without edema. LABORATORY DATA: Glucose is 116, hemoglobin is 13. IMPRESSION: 1. Status post non-ST elevation myocardial infarction. 2. Status post percutaneous transluminal coronary angioplasty and stent of distal left main and proximal circumflex artery. 3. History of coronary artery bypass surgery. 4. Anemia. PLAN: Given these findings, the patient is doing well postangioplasty. From a cardiac perspective, the patient can be discharged. He need to remain on aspirin, Plavix, statin therapy and beta blockers. Rikki Mendoza MD [facility] # [id number]
--- NOTE | 2018-08-02 11:33 | CARD ---
APPROVED REPORT Date of service: 08/02/2018 EKG Measurement Heart [id number] <Conclusion> Normal sinus rhythm Normal ECG
[2018-08-02 12:39] VITALS: BP 117/72; TEMP 98.2
[2018-08-02 14:51] VITALS: PULSE 60
--- NOTE | 2018-08-02 16:29 | PN ---
DATE: 08/02/2018 PULMONARY PROGRESS NOTE REFERRING PHYSICIAN: Latisha Calzada MD SUBJECTIVE: The patient is seen lying in bed. No acute distress. No overnight events reported. Reports feeling well this morning. No headache, rhinitis, cough, shortness of breath, chest pain, abdominal pain, nausea, vomiting, diarrhea, leg pain, or leg swelling reported. PHYSICAL EXAMINATION: VITAL SIGNS: Blood pressure 117/72, pulse 63, temperature 98.2, and oxygen saturation 96%. GENERAL: No acute distress. HEENT: Moist mucous membranes. Mallampati score of 4. Crowded airway. NECK: Supple. No JVD. LUNGS: Fair airflow bilaterally. CARDIOVASCULAR: S1 and S2. ABDOMEN: Soft and nontender. No distention. No organomegaly. EXTREMITIES: No bilateral lower extremity edema. NEUROLOGIC: Awake, alert and verbal. Following commands. MEDICATIONS: Reviewed. Vitamin C 500 mg daily, aspirin 81 mg daily, Lipitor 40 mg at dinner, Plavix 75 daily, vitamin B12 of 1000 mcg daily, Humulin R sliding scale a.c. and at bedtime, Synthroid 100 mcg daily, lisinopril 10 mg daily, metformin 1000 mg twice a day, metoprolol tartrate 25 mg twice a day, and Protonix 40 mg daily. LABORATORY DATA: Reviewed. WBC 6.8, RBC 5.09, hemoglobin 13, hematocrit 40, and platelets 220. Sodium 137, potassium 4.1, chloride 103, carbon dioxide 26, anion gap 12, BUN 15, creatinine 1, GFR greater than 60, POC glucose 80, random glucose 74, and calcium 8.8. EKG shows normal sinus rhythm. IMPRESSION AND PLAN: Status post [id number] myocardial infarction, status post percutaneous transluminal coronary angioplasty and stent of distal left main and proximal circumflex artery, history of coronary artery bypass graft, anemia, coronary artery disease, diabetes mellitus, Alzheimer's type dementia, sleep apnea syndrome, hypertension. The patient is scheduled for discharge home today. Pulmonary status stable at this time for discharge home. Pulmonary point of view, continue to encourage continuous positive airway pressure use at bedtime. Sleep apnea precaution, head of bed elevated at 45 degrees, fall precautions. Recommend the patient follow up as outpatient for followup regarding sleep apnea. This patient was seen and examined with Dr. Arellano. Discussed assessment and plan as described above. This patient was seen and examined with Bam Lang, nurse practitioner. Discussed assessment and plan as described above. Thank you for this consult and we will follow with you. Bam Lang APN Nevin Arellano MD
--- NOTE | 2018-08-03 14:29 | DS ---
REASON FOR VISIT: NSTEMI elevation and refractory hypoglycemia. The patient has a history of hypothyroidism, diabetes, atrial fibrillation, coronary bypass, chronic kidney disease, and COPD. PHYSICAL EXAMINATION: VITAL SIGNS: Reviewed. HOME MEDICATIONS: Vitamin C, aspirin, Lipitor, Plavix 75 mg was added, vitam B12, enalapril 10 mg, glipizide 10 mg, Synthroid 125 mcg, metformin 1000 mg, HOSPITAL COURSE: The patient was seen today at the bedside. He was alert, no acute distress , Discussed discharge medications with the patient, also discussed followup appointment in the office within 1 to 2 weeks. I spoke to nurse during that time, notify nurse as soon as Pulmonary was to round on the patient and clear him for discharge that discharge would be okay. The patient is seen by Cardiology and he is also seen by Pulmonology, he was cleared for both doctors for discharge. PLAN: The patient is to continue medications at bedside. Follow up in the office within 1 week. PT IS S/E AT BED SIDE , LOOKING COMFORTABLE , D/D WITH ALUMINUM SIDING INSTALLER . AND STAFF EDUCATION DONE , WILL F/U Angel Ayers APN Latisha Calzada MD [facility]
== END 2018-08-02 17:07 | disposition home or self-care (01) | DRG 247 ==
LOC: ED 22:32 → ERH 07-30 00:52 → 2RNO 07-30 02:08 → 2RSO 08-01 11:25
PROVIDERS: ADMIT Internal Medicine; ATTEND Internal Medicine
PROC: 5A09357 Assistance with Respiratory Ventilation, Less than 24 Consecutive Hours, Continuous Positive Airway Pressure (ICD-10-PCS; 2018-07-30)
PROC: 027034Z Dilation of Coronary Artery, One Artery with Drug-eluting Intraluminal Device, Percutaneous Approach (ICD-10-PCS; principal; 2018-08-01)
PROC: 4A023N7 Measurement of Cardiac Sampling and Pressure, Left Heart, Percutaneous Approach (ICD-10-PCS; 2018-08-01)
PROC: B2151ZZ Fluoroscopy of Left Heart using Low Osmolar Contrast (ICD-10-PCS; 2018-08-01)
PROC: B2111ZZ Fluoroscopy of Multiple Coronary Arteries using Low Osmolar Contrast (ICD-10-PCS; 2018-08-01)
PROC: B3101ZZ Fluoroscopy of Thoracic Aorta using Low Osmolar Contrast (ICD-10-PCS; 2018-08-01)
DX: I21.4 Non-ST elevation (NSTEMI) myocardial infarction (principal); I13.0 Hypertensive heart and chronic kidney disease with heart failure and stage 1 through stage 4 chronic kidney disease, or unspecified chronic kidney disease; E11.649 Type 2 diabetes mellitus with hypoglycemia without coma; I25.110 Atherosclerotic heart disease of native coronary artery with unstable angina pectoris; E11.22 Type 2 diabetes mellitus with diabetic chronic kidney disease; I50.9 Heart failure, unspecified; N40.0 Benign prostatic hyperplasia without lower urinary tract symptoms; E11.65 Type 2 diabetes mellitus with hyperglycemia; E03.9 Hypothyroidism, unspecified; G30.9 Alzheimer's disease, unspecified; F02.80 Dementia in other diseases classified elsewhere, unspecified severity, without behavioral disturbance, psychotic disturbance, mood disturbance, and anxiety; G47.30 Sleep apnea, unspecified; R19.7 Diarrhea, unspecified; K21.0 Gastro-esophageal reflux disease with esophagitis; E78.00 Pure hypercholesterolemia, unspecified; D64.9 Anemia, unspecified; Z79.82 Long term (current) use of aspirin; Z91.19 Patient's noncompliance with other medical treatment and regimen; Z79.84 Long term (current) use of oral hypoglycemic drugs; Z95.1 Presence of aortocoronary bypass graft